=== PATIENT | male | born 1955 | race Caucasian/White ===

== ENCOUNTER 2016-09-21 09:57 | Inpatient (IN) ==
[2016-09-21] MEDS ORDERED: Ondansetron 4 MG/2 ML VIAL IVP ONE (10:14)
[2016-09-21] MEDS ORDERED: *HR* HYDROmorphone (PF) 1 MG/ML SYRINGE IVP ONE (10:14)
[2016-09-21] MEDS ORDERED: 0.9 % Sodium Chloride 1,000 ML IVC ONE ×3 (10:14→11:50)
[2016-09-21] MEDS ORDERED: Piperacillin/Tazobactam 3.375 GM in D5% in Water (Mini-Bag+) 100 ML IVPB ONE (10:18)
[2016-09-21 10:42] LABS: Basophils % 0.3 %; Eosinophils % 0.1 %; Hematocrit 49.7 % (37.5-50.1); Hemoglobin 16.8 g/dL (12.9-16.9); Immature Granulocytes % 0.9 % (0-4); Lymphocytes % 7.3 %; Mean Corpuscular HGB Conc 33.8 g/dL (31.6-35.5); Mean Corpuscular Volume 85.7 fL (83.0-100.0); Mean Platelet Volume 9.4 fL (9.4-12.4); Platelet Count 319 K/mcL (140-400); Red Cell Distribution Width 13.8 % (11.5-14.5); Segmented Neutrophils % 84.4 %
[2016-09-21 10:47] LABS: INR 1.3; Prothrombin Time 13.8 Seconds (9.4-12.1)
[2016-09-21 10:50] LABS: Activated Partial Thrombo Time 30.6 Seconds (26.0-36.0)
[2016-09-21 11:00] LABS: Albumin 3.9 g/dL (3.5-5.0); Albumin/Globulin Ratio 0.7 (1.1-2.2); Bilirubin,Direct 0.7 mg/dL (0.0-0.5); Bilirubin,Indirect 0.5 mg/dL (0.0-1.2); Bilirubin,Total 1.2 mg/dL (0.2-1.2); Calcium 11.6 mg/dL (8.6-10.8); Globulin 5.6 g/dL (2.4-3.5); Potassium 3.8 mEq/L (3.5-4.5); Total Protein 9.5 g/dL (6.0-8.3)
--- NOTE | 2016-09-21 11:32 | Emergency Department Note ---
Disposition Clinical Impression: Acute appendicitis Qualifiers: Acute appendicitis type: with localized peritonitis Qualified Code(s): K35.3 - Acute appendicitis with localized peritonitis Abdominal pain Qualifiers: Abdominal location: right lower quadrant Qualified Code(s): R10.31 - Right lower quadrant pain Sepsis Qualifiers: Sepsis type: sepsis due to unspecified organism Qualified Code(s): A41.9 - Sepsis, unspecified organism Hypotension Qualifiers: Hypotension type: unspecified hypotension type Qualified Code(s): I95.9 - Hypotension, unspecified Disposition: Admitted As Inpatient Condition: Fair Referrals: Natividad Roberto BILLET DRILLER [Primary Care Provider] - Forms: Work/School Release, ED Satisfaction Letter Time of Disposition: 13:18 Abdominal Pain HPI - General Chief Complaint: ED Abdominal Pain Stated Complaint: "Hernia" Time Seen by Provider: 09/21/16 10:05 Source: patient, family Mode of arrival: ambulatory Limitations: no limitations Nursing Notes Reviewed: Yes Vital Signs Reviewed: Yes - History of Present Illness HPI Narrative: Patient presented emergency room complaining of abdominal pain. Symptoms started 3-4 days ago. He has what he thinks is a hernia. He felt like he has had significant pain or changes in the symptoms in his abdomen since then. Pain is isolated in the right lower quadrant. He has not been able to eat or drink and has not had a bowel movement in 4 days. He also describes some decreased urinary output. No other changes or surgical intervention performed on his abdomen. He does have a history of bladder cancer that was treated multiple years ago. Denies fevers chills chest pain shortness breath headache or vision change. Has intermittent nausea no specific vomiting and no diarrhea. Pt Subjective Complaint: abdominal pain Onset (ago): day(s) Consistency: constant Location: diffuse Pain Severity: severe Pain Scale: 9 Quality: stabbing Radiation: RLQ Migration to: no migration Improves with: nothing Worsens with: movement Associated symptoms: Reports: nausea, vomiting, chills, constipation. Denies: diarrhea, fever Treatments prior to arrival: none - Related Data Home Medications Medication Instructions Recorded Confirmed Acetaminophen with Codeine 1 tab PO Q6H PRN 09/21/16 09/21/16 [Acetaminophen-Cod #3 Tablet] Gabapentin [Neurontin] 300 mg PO TID 09/21/16 09/21/16 LORazepam [Ativan] 1 mg PO BID 09/21/16 09/21/16 Lisinopril-HCTZ 20-12.5 [Prinzide 1 tab PO DAILY 09/21/16 09/21/16 20-12.5] Naproxen Sodium [Aleve] 220 mg PO Q12H PRN 09/21/16 09/21/16 Venlafaxine HCl [Venlafaxine HCl] 100 mg PO BID 09/21/16 09/21/16 Allergies Allergy/AdvReac Type Severity Reaction Status Date / Time morphine Allergy See Verified 09/21/16 10:04 Comments All systems ED: reviewed and negative except as stated. Constitutional: Reports: chills. Denies: fever, weakness Cardiovascular: Reports: orthopnea. Denies: chest pain, palpitations, dyspnea on exertion Respiratory: Denies: dyspnea, wheezes, hemoptysis Gastrointestinal: Reports: abdominal pain, nausea, vomiting, constipation. Denies: diarrhea Genitourinary: Denies: dysuria, frequency, hematuria Musculoskeletal: Reports: back pain. Denies: neck pain Abdominal Pain PMH - Past Medical History Medical history: Reports: hypertension, seizures Male Surgical History: Reports: other - Social History Smoking status: Current every day smoker Alcohol use: Reports: none Drug use: Reports: none Physical Exam - General Limitations: no limitations General appearance: alert, in no apparent distress - Chest Chest inspection: Present: normal inspection, symmetric chest wall rise - Respiratory Respiratory exam: Present: normal lung sounds bilaterally - Cardiovascular Cardiovascular exam: Present: regular rate, normal rhythm, normal heart sounds - Abdominal Exam Abdominal exam: Present: soft, tenderness, distention (Distention and mild guarding no specific peritoneal leg symptoms no rigidity), normal bowel sounds ( Diminished bowel sounds). Absent: Cabezas's sign, Rovsing's sign, tenderness at McBurney's Point - Extremities Exam Extremities exam: Present: normal inspection, full ROM, normal capillary refill - Back Exam Back exam: Present: normal inspection - Neurological Exam Neurological exam: Present: alert, oriented X3, CN II-XII intact, normal gait - Skin Skin exam: Present: warm, dry, intact, normal color Course Course Narrative: Patient seen and examined at the time of arrival. See history of present illness. 60-year-old male presents to emergency room 4 days with abdominal pain and inability to urinate and inability to have a bowel movement. Remote history of bladder cancer. No recent or previous history of abdominal surgeries. Only surgeries ever had is of the bladder. Patient denies fevers has had intermittent chills nausea vomiting no diarrhea. Denied chest pain or shortness of breath. Patient presented with vital signs are tachycardic intermittently to Blood pressure was stable in triage but is low on initial evaluation at the bedside. Patient is concerning based on physical exam for intra-abdominal pathology including hernia, incarcerated bowel, gut, renal calculi, obstruction at this time. Lungs are clear heart is regular but tachycardia abdomen is distended mildly tense fluid wave no peritoneal signs symptoms or presentation at this time. IV antibiotics will be given fluid boluses to be provided for resuscitation 2 large-bore IVs given blood cultures CBC chemistry BNP and further treatment course to be evaluated. Patient is concerning for surgical abdomen and will require further resuscitation. We will continue to monitor closely in the emergency room his treatment course is completed. Pain medication nausea medication to be given. Family is at the bedside and comfortable the course of care - Reevaluation(s) Reevaluation #1: Patient has 3 L of fluid were ordered at this time. He has no history of congestive heart failure or fluid overload. Patient is persistently hypodensity 82/60. Abdominal pain was controlled with pain medication nausea medication. CT imaging is still pending at this point. Patient does have an elevated white blood cell, and a significantly elevated creatinine at 6.43. Concern is noted projected pathology or intra-abdominal pathology at this time. We will continue monitoring his treatment course is completed. Patient will need evaluation by a neurosurgeon or further medical management this time. No history of acute aortic dissection or a triple a in the family. Patient has no other medical issues prior to this. Abdomen is otherwise the most concerning pathology at this point. Disposition pending treatment course. Bedside ultrasound completed by myself showing what appears to be no fluid in the abdomen. Difficult test based on patient's abdomen distention at this time. Distended loops of bowel noted on exam with no free fluid at this point Time: 11:57 Reevaluation #2: central line placed and in good location. Will be used for the norepinephrine drip and fluid resuscitation. 2 L of lactated Ringer's to be given at this time. I discussed the patient with the runway model on-call. They are happy to accept the patient to the ICU for further evaluation and management. Discussed intervention as well as consultations with the on-call surgeon and inside sales territory manager. Patient is stable resting in the bed at this time. Fluid and medication to be provided as tolerated. Disposition will be admission to the ICU Time: 13:17 Reevaluation #3: There is transported to the ICU without any complications Time: 14:00 - Consultations Consultation #1: Patient discussed with the surgeon Dr. Vyas. He and I reviewed the patient' s presentation symptoms medical intervention and CAT scan findings. He independently reviewed the CAT scan and said the patient will most likely need medical management as well as a nasogastric tube placed at this time. He recommended nephrology consultation admission the hospitalist and he will be down to evaluate the patient here in the emergency room at the bedside. We discussed the patient's abdomen being distended and mildly tense as well as his symptoms presentation and history. Patient is otherwise resting in the bed at this time symptoms are better under control heart rate is coming down blood pressure is still a concern. 3 L of fluids running at this time Time: 12:13 Consultation #2: discussed the pt with Dr. Mak on-call inside sales territory manager. The patient's presentation symptoms medical history and previous evaluation. His recommendation was to continue aggressive fluid hydration based on his medical history as well as summation maintain blood pressure. Patient will be clinically treated for shock at this point providing him with pressure medication. IV central line to be placed at this time I myself at the bedside. Verbal and then consent forms were signed by the patient he understands risks and benefits of this. Please see procedure note. Time: 12:25 Vital Signs Temperature 97.5 F L 09/21/16 09:58 Pulse Rate 125 09/21/16 09:58 Respiratory Rate 18 09/21/16 09:58 Blood Pressure 100/70 09/21/16 09:58 O2 Sat by Pulse Oximetry 93 09/21/16 09:58 Temperature 97.5 F L 09/21/16 09:58 Pulse Rate 112 09/21/16 10:58 Respiratory Rate 17 09/21/16 10:58 Blood Pressure 88/63 09/21/16 10:58 O2 Sat by Pulse Oximetry 91 09/21/16 10:58 Oxygen Delivery Oxygen Delivery Nasal Cannula Procedures - Central Line Placement Right IJ Central Line Inserted*: Yes Central Line Insertion: emergent Consent Obtained: written consent Procedural Pause: verify patient name and date of , timeout performed per policy, godfrey and assess the site, assemble equipment and verify supplies, perform hand hygiene Patient Placed on Monitor/Pulse Ox: Yes During the Procedure: clinician is wearing sterile gloves, cap, mask,& gown during insertion, sterile field and sterile technique are maintained, patient's face is covered with drape or mask and wearing a cap, everyone in room is wearing a mask Central Line Prep: Chlorhexidine scrub Prep the Procedure Site: apply chloraprep for 30 seconds (upper body), 1-2 min ( femoral sites) Local Anesthetic: lidocaine 1% Amount of anesthesia used (mL): 10 Ultrasound Used for Placement: Yes Central Line Lumen Inserted: triple Post Procedure: sutured in place, good blood return, all ports aspirated, flushed, capped, sterile dressing applied, guide wire removed and visualized, dressing is dated Post Procedure X-Ray: tip of catheter in good position, no pneumothorax seen Patient Tolerated Procedure: well Complications: none Abdominal Pain - MDM Narrative Medical decision making narrative: Abdominal pain, brad, appendicitis, phlegmon, sepsis - Medical Records Medical records reviewed: Yes I reviewed the patient's medical records. - Lab Data Lab results reviewed: Yes I reviewed the patient's lab results. Result diagrams: 09/21/16 10:29 09/21/16 10:29 Lab Results 09/21/16 09/21/16 09/21/16 Range/Units 10:29 10:29 10:29 WBC 14.2 H (4.3-11.1) K/mcL RBC 5.80 H (4.19-5.50) M/mcL Hgb 16.8 (12.9-16.9) g/dL Hct 49.7 (37.5-50.1) % MCV 85.7 (83.0-100.0) fL MCH 29.0 (28.0-33.3) pg MCHC 33.8 (31.6-35.5) g/dL RDW 13.8 (11.5-14.5) % Plt Count 319 (140-400) K/mcL MPV 9.4 (9.4-12.4) fL Immature Gran % 0.9 (0-4) % Seg Neutrophils % 84.4 % Lymphocytes % 7.3 % Monocytes % 7.0 % Eosinophils % 0.1 % Basophils % 0.3 % Neutrophils # 12.0 H (1.6-8.9) K/mcL Lymphocytes # 1.0 (0.6-4.6) K/mcL Monocytes # 1.0 (0.0-1.3) K/mcL Eosinophils # 0.0 (0.0-0.6) K/mcL Basophils # 0.0 (0.0-0.2) K/mcL PT 13.8 H (9.4-12.1) Seconds INR 1.3 APTT 30.6 (26.0-36.0) Seconds Sodium 138 (136-145) mEq/L Potassium 3.8 (3.5-4.5) mEq/L Chloride 94 L (98-109) mEq/L Carbon Dioxide 25 (19-29) mEq/L BUN 74 H (8-26) mg/dL Creatinine 6.43 H (0.72-1.25) mg/dL Est GFR ( Amer) 11 L (> 60) Est GFR (Non-Af Amer) 9 L (> 60) BUN/Creatinine Ratio 12 (6-26) Glucose 155 H (70-99) mg/dL Calculated Osmolality 311 H (280-300) Lactic Acid (0.5-2.2) mmol/L Calcium 11.6 H (8.6-10.8) mg/dL Total Bilirubin 1.2 (0.2-1.2) mg/dL Direct Bilirubin 0.7 H (0.0-0.5) mg/dL Indirect Bilirubin 0.5 (0.0-1.2) mg/dL AST 19 (5-34) Units/L ALT 25 (0-55) Units/L Alkaline Phosphatase 60 (38-126) Units/L Serum Total Protein 9.5 H (6.0-8.3) g/dL Albumin 3.9 (3.5-5.0) g/dL Globulin 5.6 H (2.4-3.5) g/dL Albumin/Globulin Ratio 0.7 L (1.1-2.2) Lipase 34 (8-78) Units/L 09/21/16 Range/Units 10:29 WBC (4.3-11.1) K/mcL RBC (4.19-5.50) M/mcL Hgb (12.9-16.9) g/dL Hct (37.5-50.1) % MCV (83.0-100.0) fL MCH (28.0-33.3) pg MCHC (31.6-35.5) g/dL RDW (11.5-14.5) % Plt Count (140-400) K/mcL MPV (9.4-12.4) fL Immature Gran % (0-4) % Seg Neutrophils % % Lymphocytes % % Monocytes % % Eosinophils % % Basophils % % Neutrophils # (1.6-8.9) K/mcL Lymphocytes # (0.6-4.6) K/mcL Monocytes # (0.0-1.3) K/mcL Eosinophils # (0.0-0.6) K/mcL Basophils # (0.0-0.2) K/mcL PT (9.4-12.1) Seconds INR APTT (26.0-36.0) Seconds Sodium (136-145) mEq/L Potassium (3.5-4.5) mEq/L Chloride (98-109) mEq/L Carbon Dioxide (19-29) mEq/L BUN (8-26) mg/dL Creatinine (0.72-1.25) mg/dL Est GFR ( Amer) (> 60) Est GFR (Non-Af Amer) (> 60) BUN/Creatinine Ratio (6-26) Glucose (70-99) mg/dL Calculated Osmolality (280-300) Lactic Acid 1.8 (0.5-2.2) mmol/L Calcium (8.6-10.8) mg/dL Total Bilirubin (0.2-1.2) mg/dL Direct Bilirubin (0.0-0.5) mg/dL Indirect Bilirubin (0.0-1.2) mg/dL AST (5-34) Units/L ALT (0-55) Units/L Alkaline Phosphatase (38-126) Units/L Serum Total Protein (6.0-8.3) g/dL Albumin (3.5-5.0) g/dL Globulin (2.4-3.5) g/dL Albumin/Globulin Ratio (1.1-2.2) Lipase (8-78) Units/L - Radiology Data Radiology results reviewed: Yes I reviewed the patient's radiology results. CT abdomen confirms possible abscess and appendicitis in the right lower quadrant of the abdomen. - EKG Data EKG attestation: Yes I reviewed and interpreted this EKG. EKG shows normal: sinus rhythm, axis, intervals, QRS complexes, ST-T waves Rate: tachycardia Rhythm: NSR Hartwick/QRS: normal When compared to previous EKG there are: no significant changes Interpretation: no acute changes, unchanged when compared to prior tracing (date ) (Compared to EKG on 03/23/10) Critical Care Time Critical Care Time: Yes Total Critical Care Time: 60 Attestation: Definitive procedures, medical intervention, consultations
[2016-09-21 12:24] LABS: Bilirubin,Urine Small (Negative); Blood,Urine Negative (Negative); Clarity,Urine Cloudy (Clear); Color,Urine Dark Yellow (Yellow); Glucose,Urine (UA) 100 mg/dL (Normal); Ketones,Urine Trace mg/dL (Negative); Leukocyte Esterase,Urine Trace (Negative); Nitrite,Urine Negative (Negative); Protein,Urine Trace mg/dL (Neg-Trace); Specific Gravity,Urine 1.024 (1.010-1.025); Urobilinogen,Urine Normal (Normal)
[2016-09-21 12:27] LABS: Bacteria,Urine None Seen per hpf (None-Few); Squamous Epithelial Cell,Urine Many per lpf (None-Few)
[2016-09-21] MEDS ORDERED: Norepinephrine 4 MG in D5% in Water 250 ML IVC SCH (12:30)
--- NOTE | 2016-09-21 12:37 | General Surgery Consult Note ---
Date of Encounter: 09/21/16 Time of Encounter: 12:34 Assessment and Plan (1) Acute appendicitis with peritonitis Current Visit: Yes Status: Acute I personally reviewed the CT scan images and report and is likely the patient has acute appendicitis/phlegmon present. There is surrounding inflammation around the cecum and some stranding which is concerning for an phlegmon process. I explained to the patient and family at the most important things are IV fluid hydration, NG tube placement for decompression and the antibiotics. Will closely follow him because he still may require surgical intervention which if necessary will require right colectomy. I explained that the bowel decompression may go a long way in helping to decrease his distended abdomen and improving his pain symptoms. Nephrology has also been consulted with regards to signs of acute kidney injury. We will follow closely with you. History of Present Illness Consult date: 09/21/16 Reason for consult: abdominal pain Requesting physician: Asael Garcia History of present illness: The patient is a 60-year-old male with a past medical history significant for bladder cancer, morbid obesity, hypertension, and bronchitis who states over the past 4 days he has had the onset of right lower quadrant abdominal pain that has been increasing in severity and constant in nature. The pain has actually made it difficult for him to ambulate. He admits to nausea and vomiting and states that he vomited prior to presenting to the emergency room. He admits to constipation and normally has a bowel movement once a day but has not had a bowel movement for 4 days. Because of his worsening abdominal pain symptoms he presented to the emergency room for further evaluation. Of note; I last saw him in my office 2 years ago for possible colonoscopy. He has never had a colonoscopy and has a grandparent with a history of colon cancer. At the time he canceled the colonoscopy (he did not wish to have it done at that time). Past Med Surg Social Fam HX - Past Medical History Medical history: hypertension, seizures - Past Surgical History Surgical History: other (Cystoscopy, Righ shoulder fracture repair, excision of bladder tumor/cancer) - Social History Smoking Status: Current every day smoker Alcohol use: none Drug use: none Medications and Allergies Acetaminophen with Codeine [Acetaminophen-Cod #3 Tablet] 1 tab PO Q6H PRN [History] Gabapentin [Neurontin] 300 mg PO TID 09/21/16 [History] LORazepam [Ativan] 1 mg PO BID 09/21/16 [History] Lisinopril-HCTZ 20-12.5 [Prinzide 20-12.5] 1 tab PO DAILY 09/21/16 [History] Naproxen Sodium [Aleve] 220 mg PO Q12H PRN 09/21/16 [History] Venlafaxine HCl [Venlafaxine HCl] 100 mg PO BID 09/21/16 [History] Allergies morphine Allergy (Verified 09/21/16 10:04) See Comments Review of Systems All systems PM: reviewed and no additional remarkable complaints except as stated All systems PM: A 10-system review of systems was performed and is negative for pertinent findings except as documented above in the HPI. General Surgery Exam Initial Vital Signs Temp Pulse Resp BP Pulse Ox 97.5 F L 125 18 100/70 93 09/21/16 09:58 09/21/16 09:58 09/21/16 09:58 09/21/16 09:58 09/21/16 09:58 - General physical appearance moderate distress, moderate pain - Eyes PERRL, normal ocular movement - Neck no masses, trachea midline, no lymphadectomy - Respiratory normal expansion, normal respiratory effort, other (decreased breath sounds at the bases) - Cardiovascular Cardiovascular exam: Present: RRR, no murmurs/rubs/gallops - Abdomen Abdomen general surgery: Present: tender (Distended, no bowel sounds. Pain to palpation right sided greater than left. No masses appreciated.) - Neurologic Present: CN 2-12 grossly intact, normal coordination, normal sensation - Musculoskeletal Present: other (No clubbing, cyanosis, or edema.) - Psychiatric Psychiatric general surgery: Present: A&Ox3 Exam Initial Vital Signs Temp Pulse Resp BP Pulse Ox 97.5 F L 125 18 100/70 93 09/21/16 09:58 09/21/16 09:58 09/21/16 09:58 09/21/16 09:58 09/21/16 09:58 Results - Labs 09/21/16 10:29 09/21/16 10:29 Abnormal lab results WBC 14.2 K/mcL (4.3-11.1) H 09/21/16 10:29 RBC 5.80 M/mcL (4.19-5.50) H 09/21/16 10:29 Neutrophils # 12.0 K/mcL (1.6-8.9) H 09/21/16 10:29 PT 13.8 Seconds (9.4-12.1) H 09/21/16 10:29 Chloride 94 mEq/L (98-109) L 09/21/16 10:29 BUN 74 mg/dL (8-26) H 09/21/16 10:29 Creatinine 6.43 mg/dL (0.72-1.25) H 09/21/16 10:29 Est GFR ( Amer) 11 (> 60) L 09/21/16 10:29 Est GFR (Non-Af Amer) 9 (> 60) L 09/21/16 10:29 Glucose 155 mg/dL (70-99) H 09/21/16 10:29 Calculated Osmolality 311 (280-300) H 09/21/16 10:29 Calcium 11.6 mg/dL (8.6-10.8) H 09/21/16 10:29 Direct Bilirubin 0.7 mg/dL (0.0-0.5) H 09/21/16 10:29 Serum Total Protein 9.5 g/dL (6.0-8.3) H 09/21/16 10:29 Globulin 5.6 g/dL (2.4-3.5) H 09/21/16 10:29 Albumin/Globulin Ratio 0.7 (1.1-2.2) L 09/21/16 10:29 Diabetes panel 09/21/16 Range/Units 10:29 Sodium 138 (136-145) mEq/L Potassium 3.8 (3.5-4.5) mEq/L Chloride 94 L (98-109) mEq/L Carbon Dioxide 25 (19-29) mEq/L BUN 74 H (8-26) mg/dL Creatinine 6.43 H (0.72-1.25) mg/dL Glucose 155 H (70-99) mg/dL Calcium 11.6 H (8.6-10.8) mg/dL AST 19 (5-34) Units/L ALT 25 (0-55) Units/L Alkaline Phosphatase 60 (38-126) Units/L Albumin 3.9 (3.5-5.0) g/dL Calcium panel 09/21/16 Range/Units 10:29 Calcium 11.6 H (8.6-10.8) mg/dL Albumin 3.9 (3.5-5.0) g/dL Pituitary panel 09/21/16 Range/Units 10:29 Sodium 138 (136-145) mEq/L Potassium 3.8 (3.5-4.5) mEq/L Chloride 94 L (98-109) mEq/L Carbon Dioxide 25 (19-29) mEq/L BUN 74 H (8-26) mg/dL Creatinine 6.43 H (0.72-1.25) mg/dL Glucose 155 H (70-99) mg/dL Calcium 11.6 H (8.6-10.8) mg/dL Adrenal panel 09/21/16 Range/Units 10:29 Sodium 138 (136-145) mEq/L Potassium 3.8 (3.5-4.5) mEq/L Chloride 94 L (98-109) mEq/L Carbon Dioxide 25 (19-29) mEq/L BUN 74 H (8-26) mg/dL Creatinine 6.43 H (0.72-1.25) mg/dL Glucose 155 H (70-99) mg/dL Calcium 11.6 H (8.6-10.8) mg/dL Total Bilirubin 1.2 (0.2-1.2) mg/dL AST 19 (5-34) Units/L ALT 25 (0-55) Units/L Alkaline Phosphatase 60 (38-126) Units/L Albumin 3.9 (3.5-5.0) g/dL All other labs normal. - Imaging CT scan - abdomen: report reviewed, image reviewed (CT showing fatty inflammatory changes around the cecum and possible enlarged appendix concerning for appendicitis versus phlegmon. No free air or free fluid. Dilated small bowel. Colon with stool present.) Consult Discharge Plan - Plan Referrals: Natividad Roberto, SUNITA [Primary Care Provider] -
[2016-09-21 12:38] LABS: RBC,Urine 0-3 per hpf (0-3)
[2016-09-21 12:39] LABS: Renal Epithelial Cells,Urine Few per hpf (None-Few); Transitional Epi Cells,Urine Few per hpf (None-Few)
[2016-09-21 12:40] LABS: Amorphous Sediment,Urine Moderate (Few)
[2016-09-21 12:54] LABS: INR 1.4
--- NOTE | 2016-09-21 13:11 | Event Note ---
Date of Encounter: 09/21/16 Time of Encounter: 13:05 Nephrology Update Consulted for PATIENCE in the setting of acute appy and rigid abdomen. In the ER, the pt was in the middle of receiving a CVC. I briefly spoke with the pt, and subsequently spoke the DIRECTOR TRANSLATION who will tentatively be his nurse in the ICU. Initial impressions: - PATIENCE with ddx of sepsis, poor hemodynamics, pre-renal vs abdominal compartment syndrome. - Hypercalcemia: suggestive of severe dehydration. His Hgb was also somewhat high suggestive of volume depletion. Recommend ongoing volume expansion with IVF and agree with placement of the CVC. I've placed orders for following up on his SCr, K and Ca; and, I spoke with the DIRECTOR TRANSLATION asking her to keep me updated. Check a bladder pressure to assess for abdominal compartment syndrome. He appears to not have urgent HD indications, but will have to follow his labs closely since he's potentially near to needing dialysis. Appendicitis as per surgery Full consult and recommendations to follow. Thank you.
[2016-09-21] MEDS ORDERED: Ringers Solution, Lactated 1,000 ML IVC ONE (13:22)
[2016-09-21] MEDS ORDERED: 0.9 % Sodium Chloride 1,000 ML ONE (14:02)
[2016-09-21] MEDS ORDERED: Ondansetron 4 MG/2 ML VIAL IVP PRN (14:33)
[2016-09-21] MEDS ORDERED: Calcium Gluconate 1,000 MG in D5% in Water 100 ML IVPB PRN (14:35)
[2016-09-21] MEDS ORDERED: Potassium Phosphate 44 MEQ in 0.9 % Sodium Chloride 250 ML IVPB PRN (14:35)
[2016-09-21] MEDS ORDERED: Magnesium Sulfate 2 GM in D5% in Water 100 ML IVPB PRN (14:35)
[2016-09-21] MEDS ORDERED: Potassium Chloride 40 MEQ/200 ML BAG IVPB PRN (14:35)
[2016-09-21] MEDS ORDERED: *HR* HYDROmorphone (PF) 1 MG/ML SYRINGE IVP PRN (14:38)
--- NOTE | 2016-09-21 14:44 | Pulmonology History & Physical ---
<Joseph Ravi W - Last Filed: 09/21/16 15:18> Date of Encounter: 09/21/16 History of Present Illness HPI: Mr. Chapman is a 60 year old male Medications and Allergies Acetaminophen with Codeine [Acetaminophen-Cod #3 Tablet] 1 tab PO Q6H PRN [History] Gabapentin [Neurontin] 300 mg PO TID 09/21/16 [History] LORazepam [Ativan] 1 mg PO BID 09/21/16 [History] Lisinopril-HCTZ 20-12.5 [Prinzide 20-12.5] 1 tab PO DAILY 09/21/16 [History] Naproxen Sodium [Aleve] 220 mg PO Q12H PRN 09/21/16 [History] Venlafaxine HCl [Venlafaxine HCl] 100 mg PO BID 09/21/16 [History] Allergies morphine Allergy (Verified 09/21/16 10:04) See Comments All Systems: A 10-system review of systems was performed and is negative for pertinent findings except as documented above in the HPI. Physical Examination Vital Signs: Vital Signs, Last 4 Hours Pulse Resp BP Pulse Ox 09/21/16 13:53 16 100/62 09/21/16 13:36 85 16 96/63 92 Results - Laboratory Findings CBC and BMP: 09/21/16 10:29 09/21/16 10:29 PT/INR, D-dimer PT 15.0 Seconds (9.4-12.1) H 09/21/16 12:34 Abnormal lab findings: Abnormal lab results WBC 14.2 K/mcL (4.3-11.1) H 09/21/16 10:29 RBC 5.80 M/mcL (4.19-5.50) H 09/21/16 10:29 Neutrophils # 12.0 K/mcL (1.6-8.9) H 09/21/16 10:29 PT 15.0 Seconds (9.4-12.1) H 09/21/16 12:34 Chloride 94 mEq/L (98-109) L 09/21/16 10:29 BUN 74 mg/dL (8-26) H 09/21/16 10:29 Creatinine 6.43 mg/dL (0.72-1.25) H 09/21/16 10:29 Est GFR ( Amer) 11 (> 60) L 09/21/16 10:29 Est GFR (Non-Af Amer) 9 (> 60) L 09/21/16 10:29 Glucose 155 mg/dL (70-99) H 09/21/16 10:29 POC Glucose 133 (58-89) H 09/21/16 14:06 Calculated Osmolality 311 (280-300) H 09/21/16 10:29 Calcium 11.6 mg/dL (8.6-10.8) H 09/21/16 10:29 Direct Bilirubin 0.7 mg/dL (0.0-0.5) H 09/21/16 10:29 Serum Total Protein 9.5 g/dL (6.0-8.3) H 09/21/16 10:29 Globulin 5.6 g/dL (2.4-3.5) H 09/21/16 10:29 Albumin/Globulin Ratio 0.7 (1.1-2.2) L 09/21/16 10:29 Urine Clarity Cloudy (Clear) A 09/21/16 12:11 Urine Glucose (UA) 100 mg/dL (Normal) H 09/21/16 12:11 Urine Ketones Trace mg/dL (Negative) H 09/21/16 12:11 Urine Bilirubin Small (Negative) H 09/21/16 12:11 Ur Leukocyte Esterase Trace (Negative) H 09/21/16 12:11 Urine Microscopic WBC 5-15 per hpf (0-3) H 09/21/16 12:11 Ur Squamous Epith Cells Many per lpf (None-Few) H 09/21/16 12:11 Amorphous Sediment Moderate (Few) H 09/21/16 12:11 Ur Culture Indicated? YES (NO) A 09/21/16 12:11 - Attending Attestation I examined this patient and my medical decision-making was reviewed with the ANIMAL SHELTER WORKER/PA/Advanced Practice Nurse/Resident Physician. I agree with the documented findings, disposition and treatment plan as described except to the extent set forth below. Patient seen and examined at bedside Labs, radiology, chart personally reviewed. Neuropsych: No focal neurological deficits. Cont narcotic analgesia as neede. Pulm: Patient is a long-time smoker possible underlying COPD oxygen saturation on room air is drop down to less than 89% which improved quickly with 2 L this is likely secondary to splinting and atelectasis from abdominal distention/ pain. Wean FiO2 to keep SpO2 around 92-94% Cards: ECG without STEMI; concern for hypovolemic versus distributive shock secondary to acute appendicitis has received generous fluid resuscitation in the emergency department map borderline 60 was briefly on vasopressor but that has been weaned off lactate is normal continue to monitor urine output and will place on maintenance fluid FEN-GI: Nothing by mouth for now NG tube placement for possible small bowel obstruction acute appendicitis plus/minus perforation although without evidence on CT scan general surgery consulted opting for medical management are present if worsening abdominal examination may need emergent surgery. We will continue to monitor with serial abdominal examinations Renal: Acute kidney injury secondary to hypovolemia with concomitant use of nonsteroidal anti-inflammatory medications for pain. Some concern for abdominal compartment syndrome given degree of distention and bladder pressure will be transduced; nephrology has evaluated the patient he is received fluid resuscitation we will renally dose all medications and attempt to avoid nephrotoxin as able ID: Severe sepsis patient has been adequately volume resuscitated greater than 30 mL per KG; cordoba cultures have been obtained antimicrobial coverage for GI darby including anaerobic has been administered (per Pip/Tazo). Heme/Onc: DVT prophylaxis will be given type and screen for possible surgery H/ H and platelets are stable Endo: Glucose will be monitored Integ/MSK: Skin care per routine ICU protocol CODE: Full code <Pamela Avila - Last Filed: 09/21/16 16:07> Date of Encounter: 09/21/16 Time of Encounter: 14:31 Assessment and Plan (1) Acute appendicitis with peritonitis Current visit: Yes Status: Acute Male patient presenting to ICU after diagnosis of acute appendicitis. Dr. Vyas is the surgeon on board. Dr. Tijerina with nephrology on board. He also has PATIENCE. Creatinine is greater than 6. He has darkened urine but decent urine output. His white count is 14. A central line was placed in the emergency department he was placed on Levofed. This is being discontinued as he is maintaining a map greater than 60. Plan: Zosyn Fluid rehydration. Maintenance fluids at 75 mL an hour DVT prophylaxis heparin 5000 units every 8 Maintain map between 55 and 60. Nothing by mouth Levophed as needed if pressure drops again. Serial abdominal exams Continue to monitor. (2) Sepsis Current visit: Yes Status: Acute Central line placed. Patient has been given 4 L of normal saline and 1 L of LR. The Levophed was started and discontinued. Respirations maintaining a map in the 60s. Mentating appropriately. Plan: Repeat lactate. Continue antibiotics. Qualifiers: Sepsis type: sepsis due to unspecified organism Qualified Code(s): A41.9 - Sepsis, unspecified organism (3) PATIENCE (acute kidney injury) Current visit: Yes Status: Acute Nephro onboard. Plan: Patient received several fluid boluses. Maintenance fluid at 75 an hour. Continue to monitor (4) Hypotension Current visit: Yes Status: Acute Plan as above (5) DVT prophylaxis Current visit: Yes Status: Acute Plan as above History of Present Illness HPI: Mr. Chapman is a 60 year old male who presents emergency arm in today complaining of lower right quadrant pain. He was found to have an acute appendicitis and possible abscess. He is reporting a 3 to four-day history of nausea with one episode of vomiting. He denies hematemesis. He is also reporting no bowel movements in anywhere from 3-5 days. He states that prior to this he did not have any episodes of hematochezia or melena. He does report subjective fevers at home that are consistent with chilling. Patient was found to have acute appendicitis as well as fluid around his appendix. On CT it is not appears that there is a perforation but is as peers if there may be an abscess. Surgery is being consult it. We are medically managing patient for now. He was initially hypotensive in emergency department a central line was placed and patient was placed on the Levophed. This is been discontinued for now and patient is maintaining a map in the 60s. His received 4 L of normal saline as well as 1 L of LR. We will continue maintenance fluids. He also has PATIENCE. Creatinine is greater than 6. Past Med Surg Social Fam HX - Past Medical History Attestation: Yes The following information was validated with the patient. Medical history: hypertension, seizures - Past Surgical History Surgical History: other (Cystoscopy, Righ shoulder fracture repair, excision of bladder tumor/cancer) - Social History Smoking Status: Current every day smoker Alcohol use: none Drug use: none All Systems: A 10-system review of systems was performed and is negative for pertinent findings except as documented above in the HPI. - Constitutional Constitutional: fever(s) (Subjective fevers, chilling for the past 4-5 days.) - Cardiovascular Cardiovascular: no chest pain - Respiratory Respiratory: no cough, no dyspnea - Gastrointestinal Gastrointestinal: abdominal pain (Patient localizes to right lower quadrant), nausea (For the last 3-4 days.), vomiting (One episode that he describes as a slimy mucus.), other (No stool in 3-4 days.), no diarrhea, no hematemesis, no hematochezia, no melena - Genitourinary Genitourinary: no difficulty urinating, no dysuria, no flank pain, no hematuria - Musculoskeletal Musculoskeletal: no arthralgias - Integumentary Integumentary: no erythema, no rash Physical Examination Vital Signs: Vital Signs, Last 4 Hours Pulse Resp BP Pulse Ox 09/21/16 13:53 16 100/62 09/21/16 13:36 85 16 96/63 92 General appearance: no acute distress Eyes: nonicteric ENT: oropharynx dry (Mucous membranes dry.) Neck: supple, no lymphadenopathy, no JVD Effort: normal Inspection: normal Auscultation: bilateral: clear Cardiovascular: regular rate and rhythm Gastrointestinal: normoactive bowel sounds, tender (To palpation diffusely.), other (Abdomen is distended and taut. Not scaphoid. No fluid wave present. No organomegaly that I can appreciate however patient is very tender and guards. ) Results - Laboratory Findings CBC and BMP: 09/21/16 10:29 09/21/16 10:29 PT/INR, D-dimer PT 15.0 Seconds (9.4-12.1) H 09/21/16 12:34 Abnormal lab findings: Abnormal lab results WBC 14.2 K/mcL (4.3-11.1) H 09/21/16 10:29 RBC 5.80 M/mcL (4.19-5.50) H 09/21/16 10:29 Neutrophils # 12.0 K/mcL (1.6-8.9) H 09/21/16 10:29 PT 15.0 Seconds (9.4-12.1) H 09/21/16 12:34 Chloride 94 mEq/L (98-109) L 09/21/16 10:29 BUN 74 mg/dL (8-26) H 09/21/16 10:29 Creatinine 6.43 mg/dL (0.72-1.25) H 09/21/16 10:29 Est GFR ( Amer) 11 (> 60) L 09/21/16 10:29 Est GFR (Non-Af Amer) 9 (> 60) L 09/21/16 10:29 Glucose 155 mg/dL (70-99) H 09/21/16 10:29 POC Glucose 133 (58-89) H 09/21/16 14:06 Calculated Osmolality 311 (280-300) H 09/21/16 10:29 Calcium 11.6 mg/dL (8.6-10.8) H 09/21/16 10:29 Direct Bilirubin 0.7 mg/dL (0.0-0.5) H 09/21/16 10:29 Serum Total Protein 9.5 g/dL (6.0-8.3) H 09/21/16 10:29 Globulin 5.6 g/dL (2.4-3.5) H 09/21/16 10:29 Albumin/Globulin Ratio 0.7 (1.1-2.2) L 09/21/16 10:29 Urine Clarity Cloudy (Clear) A 09/21/16 12:11 Urine Glucose (UA) 100 mg/dL (Normal) H 09/21/16 12:11 Urine Ketones Trace mg/dL (Negative) H 09/21/16 12:11 Urine Bilirubin Small (Negative) H 09/21/16 12:11 Ur Leukocyte Esterase Trace (Negative) H 09/21/16 12:11 Urine Microscopic WBC 5-15 per hpf (0-3) H 09/21/16 12:11 Ur Squamous Epith Cells Many per lpf (None-Few) H 09/21/16 12:11 Amorphous Sediment Moderate (Few) H 09/21/16 12:11 Ur Culture Indicated? YES (NO) A 09/21/16 12:11 - Diagnostic Findings Chest x-ray: report reviewed Additional studies: Abdomen/Pelvis CT 09/21/16 11:06 IMPRESSION: Findings suggest acute appendicitis with extensive right lower quadrant and pericecal inflammatory changes. Small area of fluid measuring 23 x 15 x 23 mm adjacent to the appendix may represent a developing abscess. Note definite discrete abscess at this time. Ileus versus partial mid small bowel obstruction likely secondary to the right lower quadrant inflammatory changes from acute appendicitis. Transition from dilated to normal caliber small bowel in the proximal ileum. Severe diffuse hepatic steatosis. D/ / 09/21/2016 12:03:28 Aamir Brown MD / kassie Interpreting Provider: Aamir Brown MD Chest X-Ray 09/21/16 13:04 IMPRESSION: Left basilar airspace disease, probably atelectasis. D/ / Natividad Pacheco Cha, MD / Natividad Pacheco Cha, MD Interpreting Provider: Natividad Pacheco Cha, MD
[2016-09-21] MEDS: *HR* HYDROmorphone (PF) 1 MG/ML SYRINGE IVP SCH ×2 (14:58→20:28)
[2016-09-21] MEDS: 0.9 % Sodium Chloride 1,000 ML IVC SCH (14:59)
[2016-09-21] MEDS: *HR* Heparin 5,000 UNIT/ML VIAL SQ SCH ×2 (16:26→22:50)
[2016-09-21 16:51] LABS: Ionized Calcium 1.12 mmol/L (1.15-1.35)
[2016-09-21 17:02] LABS: Phosphorous 6.1 mg/dL (2.3-4.7)
[2016-09-21 17:03] LABS: Potassium 3.8 mEq/L (3.5-4.5)
[2016-09-21] MEDS: Piperacillin/Tazobactam 3.375 GM in D5% in Water (Mini-Bag+) 100 ML IVPB SCH (18:06)
[2016-09-21] MEDS: *HR* LORazepam 2 MG/ML VIAL IVP SCH (20:28)
[2016-09-22] MEDS: *HR* HYDROmorphone (PF) 1 MG/ML SYRINGE IVP SCH ×6 (00:22→21:24)
[2016-09-22] MEDS: 0.9 % Sodium Chloride 1,000 ML IVC SCH (03:56)
[2016-09-22 04:20] LABS: Basophils % 0.3 %; Eosinophils # 0.1 K/mcL (0.0-0.6); Eosinophils % 1.8 %; Hematocrit 41.8 % (37.5-50.1); Immature Granulocytes % 0.6 % (0-4); Lymphocytes # 0.9 K/mcL (0.6-4.6); Mean Corpuscular HGB Conc 33.5 g/dL (31.6-35.5); Mean Corpuscular Hemoglobin 29.6 pg (28.0-33.3); Mean Corpuscular Volume 88.4 fL (83.0-100.0); Mean Platelet Volume 9.5 fL (9.4-12.4); Monocytes # 0.7 K/mcL (0.0-1.3); Monocytes % 8.7 %; Neutrophils # 6.1 K/mcL (1.6-8.9); Platelet Count 239 K/mcL (140-400); Red Blood Count 4.73 M/mcL (4.19-5.50); Red Cell Distribution Width 13.9 % (11.5-14.5); Segmented Neutrophils % 77.6 %
[2016-09-22 04:26] LABS: Ionized Calcium 1.17 mmol/L (1.15-1.35)
[2016-09-22 04:32] LABS: Magnesium 2.3 mg/dL (1.6-2.6); Uric Acid 10.4 mg/dL (3.5-7.2)
[2016-09-22] MEDS: *HR* Heparin 5,000 UNIT/ML VIAL SQ SCH ×3 (06:07→21:23)
[2016-09-22] MEDS: Piperacillin/Tazobactam 3.375 GM in D5% in Water (Mini-Bag+) 100 ML IVPB SCH ×2 (06:07→16:00)
[2016-09-22 06:47] LABS: Calcium 9.5 mg/dL (8.6-10.8); Potassium 3.7 mEq/L (3.5-4.5)
--- NOTE | 2016-09-22 07:24 | Pulmonology Progress Note ---
<Pamela Avila - Last Filed: 09/22/16 08:26> Date of Encounter: 09/22/16 Time of Encounter: 07:23 Assessment and Plan (1) Acute appendicitis with peritonitis Current Visit: Yes Status: Acute Male patient presenting to ICU after diagnosis of acute appendicitis. Dr. Vyas is the surgeon on board. Dr. Tijerina with nephrology on board. He also has PATIENCE. This has resolved significantly with fluid administration. Creatinine is greater than 6. He has darkened urine but decent urine output. His white count is 14. A central line was placed in the emergency department he was placed on Levofed. This is being discontinued as he is maintaining a map greater than 60. Plan: Move to the floor Zosyn Fluid rehydration. Maintenance fluids at 75 mL an hour DVT prophylaxis heparin 5000 units every 8 Nothing by mouth NG to suction Serial abdominal exams Continue to monitor. (2) Sepsis Current Visit: Yes Status: Acute Likely abdominal source from the appendicitis. Patient not requiring pressors most of the day yesterday as well as last night. Plan: Move to the floor Continue antibiotics. Surgery on board Qualifiers: Sepsis type: sepsis due to unspecified organism Qualified Code(s): A41.9 - Sepsis, unspecified organism (3) PATIENCE (acute kidney injury) Current Visit: Yes Status: Acute Nephro onboard. Creatinine significantly improved overnight with rehydration. Went from greater than 6 to around 2. Plan: Patient received several fluid boluses. Maintenance fluid at 75 an hour. Continue to monitor (4) DVT prophylaxis Current Visit: Yes Status: Acute Plan as above Subjective Interval history: Patient had no events overnight. He has been stable. His blood pressures been stable and not requiring any vasopressors. He is easily arousable when I walk into his room. He has no complaints initially however on palpation of his abdomen he does complain of a diffuse pain. He states mostly in the right and left lower quadrants. His abdomen is still distended and taut. Do not appreciate any organomegaly however patient guards so this is a limit to the patient's abdominal exam. Dr. Vyas is on board for surgery. He is recommending we continue antibiotic treatment. I feel this is reasonable. Patient is stable enough to move to the floor today. 07:29 Dr. Burnham accepted patient in stable condition. Objective PUL Vital signs: Last Vital Signs Temp 97.8 F 09/22/16 04:00 Pulse 86 09/22/16 06:00 Resp 19 09/22/16 06:00 BP 125/85 09/22/16 06:00 Pulse Ox 95 09/22/16 06:00 General appearance: no acute distress Eyes: nonicteric ENT: oropharynx moist Neck: supple Effort: normal Auscultation: bilateral: clear Cardiovascular: regular rate and rhythm Gastrointestinal: normoactive bowel sounds, tender (Diffusely patient localizes to the lower quadrants.), other (Distended and taut. Not scaphoid.) Integumentary: normal Extremities: no cyanosis, no edema, no clubbing, pink and warm, pulses normal, no ischemia or petechiae Musculoskeletal: no deformities Gait: normal posture normal mental status, non-focal exam, pupils equal and round mood appropriate, affect normal Results - Laboratory Findings CBC and BMP: 09/22/16 03:55 09/22/16 03:55 PT/INR, D-dimer PT 15.0 Seconds (9.4-12.1) H 09/21/16 12:34 Abnormal lab findings: Abnormal lab results PT 15.0 Seconds (9.4-12.1) H 09/21/16 12:34 BUN 56 mg/dL (8-26) H 09/22/16 03:55 Creatinine 2.35 mg/dL (0.72-1.25) H 09/22/16 03:55 Est GFR ( Amer) 35 (> 60) L 09/22/16 03:55 Est GFR (Non-Af Amer) 29 (> 60) L 09/22/16 03:55 Glucose 107 mg/dL (70-99) H 09/22/16 03:55 POC Glucose 133 (58-89) H 09/21/16 14:06 Calculated Osmolality 312 (280-300) H 09/22/16 03:55 Uric Acid 10.4 mg/dL (3.5-7.2) H 09/22/16 03:55 Direct Bilirubin 0.7 mg/dL (0.0-0.5) H 09/21/16 10:29 Serum Total Protein 9.5 g/dL (6.0-8.3) H 09/21/16 10:29 Globulin 5.6 g/dL (2.4-3.5) H 09/21/16 10:29 Albumin/Globulin Ratio 0.7 (1.1-2.2) L 09/21/16 10:29 Urine Clarity Cloudy (Clear) A 09/21/16 12:11 Urine Glucose (UA) 100 mg/dL (Normal) H 09/21/16 12:11 Urine Ketones Trace mg/dL (Negative) H 09/21/16 12:11 Urine Bilirubin Small (Negative) H 09/21/16 12:11 Ur Leukocyte Esterase Trace (Negative) H 09/21/16 12:11 Urine Microscopic WBC 5-15 per hpf (0-3) H 09/21/16 12:11 Ur Squamous Epith Cells Many per lpf (None-Few) H 09/21/16 12:11 Amorphous Sediment Moderate (Few) H 09/21/16 12:11 Ur Culture Indicated? YES (NO) A 09/21/16 12:11 - Clinical Findings Intake & Output: Intake & Output 09/21/16 09/21/16 09/22/16 15:59 23:59 07:59 Intake Total 20 / 3020 100 / 100 1000 / 1000 Output Total 3900 / 3900 1250 / 1250 Balance 20 / 3020 -3800 / -3800 -250 / -250 Weight 111 kg 106.1 kg Consult Discharge Plan - Plan Referrals: Natividad Roberto, ACQUISITION PROFESSIONAL [Primary Care Provider] - <Joseph Ravi - Last Filed: 09/22/16 12:20> Date of Encounter: 09/22/16 Objective PUL Vital signs: Last Vital Signs Temp 97.7 F 09/22/16 07:59 Pulse 100 09/22/16 08:00 Resp 19 09/22/16 06:00 BP 125/85 09/22/16 06:00 Pulse Ox 95 09/22/16 06:00 Results - Laboratory Findings CBC and BMP: 09/22/16 03:55 09/22/16 03:55 PT/INR, D-dimer PT 15.0 Seconds (9.4-12.1) H 09/21/16 12:34 Abnormal lab findings: Abnormal lab results PT 15.0 Seconds (9.4-12.1) H 09/21/16 12:34 BUN 56 mg/dL (8-26) H 09/22/16 03:55 Creatinine 2.35 mg/dL (0.72-1.25) H 09/22/16 03:55 Est GFR ( Amer) 35 (> 60) L 09/22/16 03:55 Est GFR (Non-Af Amer) 29 (> 60) L 09/22/16 03:55 Glucose 107 mg/dL (70-99) H 09/22/16 03:55 POC Glucose 133 (58-89) H 09/21/16 14:06 Calculated Osmolality 312 (280-300) H 09/22/16 03:55 Uric Acid 10.4 mg/dL (3.5-7.2) H 09/22/16 03:55 Direct Bilirubin 0.7 mg/dL (0.0-0.5) H 09/21/16 10:29 Serum Total Protein 9.5 g/dL (6.0-8.3) H 09/21/16 10:29 Globulin 5.6 g/dL (2.4-3.5) H 09/21/16 10:29 Albumin/Globulin Ratio 0.7 (1.1-2.2) L 09/21/16 10:29 Urine Clarity Cloudy (Clear) A 09/21/16 12:11 Urine Glucose (UA) 100 mg/dL (Normal) H 09/21/16 12:11 Urine Ketones Trace mg/dL (Negative) H 09/21/16 12:11 Urine Bilirubin Small (Negative) H 09/21/16 12:11 Ur Leukocyte Esterase Trace (Negative) H 09/21/16 12:11 Urine Microscopic WBC 5-15 per hpf (0-3) H 09/21/16 12:11 Ur Squamous Epith Cells Many per lpf (None-Few) H 09/21/16 12:11 Amorphous Sediment Moderate (Few) H 09/21/16 12:11 Ur Culture Indicated? YES (NO) A 09/21/16 12:11 - Clinical Findings Intake & Output: Intake & Output 09/21/16 09/22/16 09/22/16 23:59 07:59 15:59 Intake Total 100 / 100 1000 / 1000 Output Total 3900 / 3900 2475 / 2475 Balance -3800 / -3800 -1475 / -1475 Weight 106.1 kg - Attending Attestation I examined this patient and my medical decision-making was reviewed with the PLASTIC EXTRUDING MACHINE OPERATOR/PA/Advanced Practice Nurse/Resident Physician. I agree with the documented findings, disposition and treatment plan as described except to the extent set forth below. Patient seen and examined at bedside Labs, radiology, chart personally reviewed. All lines examined without evidence of infection. Neuropsych: Awake and alert no acute issues continue pain control with Dilaudid Pulm: Mild hypoxemia treated with 2 L nasal cannula likely secondary to alveolar hypoventilation and atelectasis in the context of small bowel obstruction/appendicitis recommend out of bed to chair when able and incentive spirometry tobacco cessation encouraged Cards: Hypotension has resolved can begin to titrate patient's home blood pressure medications as tolerated by blood pressure FEN-GI: Nothing by mouth for now partial small bowel obstruction status post NG placement still having significant output continued IV maintenance fluid increased to 1 25 mL an hour with lactated Ringer's acute appendicitis surgery following plan for medical management at present over the next 24-48 hours. Appreciate Gen Surgery recommendations Renal: Acute kidney injury secondary to prerenal azotemia complicated by NSAID use and possible TACOS inhibitor this is improving after volume resuscitation renal dose all medications and avoid nephrotoxins nephrology has been consulted appreciate the recommendations ID: Acute appendicitis with or without perforation but no evidence of peritonitis continue piperacillin/tazobactam Heme/Onc: DVT prophylaxis given Endo: Glucose monitor Integ/MSK: Skin care per routine CODE: Full Stable for transfer to [facility] telemetry for ongoing care
--- NOTE | 2016-09-22 08:17 | General Surgery Progress Note ---
Date of Encounter: 09/22/16 Time of Encounter: 08:12 - Assessment and Plan (1) Acute appendicitis with peritonitis Current Visit: Yes Status: Acute Overall I think that his abdomen is less distended with similar amounts of tenderness. I think continued IV antibiotics will be the most important therapy to help with his pain with respect to the acute appendicitis/phlegmon. We will continue to follow closely. Agree with continued NG tube decompression. Output is noted to be blood-tinged and will follow closely. Subjective Patient reports: other (The patient is lying down, complains of pain in the right lower abdomen; unchanged. No flatus.) Objective Vital Signs - Last 8 Hours Temp Pulse Resp BP Pulse Ox 09/22/16 07:59 97.7 F 09/22/16 06:00 86 19 125/85 95 09/22/16 05:00 95 12 102/77 93 09/22/16 04:00 97.8 F 95 19 112/77 97 09/22/16 03:00 83 17 119/77 95 09/22/16 02:00 84 18 108/69 96 09/22/16 01:00 93 19 103/70 97 Intake and Output 09/21/16 09/22/16 09/22/16 23:59 07:59 15:59 Intake Total 100 / 100 1000 / 1000 Output Total 3900 / 3900 2475 / 2475 Balance -3800 / -3800 -1475 / -1475 Intake: IV Fluids 100 / 100 1000 / 1000 0.9 % Sodium Chloride 1, 1000 / 1000 000 ML @ 75 mls/hr IVC . [id number] GUERRERO Rx#: [id number] Zosyn 3.375 GM In 100 / 100 Dextrose 5% (Minibag+) 100 ML 100 ML @ 25 mls/hr IVPB Q12HR GUERRERO Rx#: [id number] Output: Catheter 1550 / 1550 1125 / 1125 Gastric Drainage 2350 / 2350 1350 / 1350 Other: Weight 106.1 kg Patient Weight 09/22/16 23:59 Weight 106.1 kg - General physical appearance moderate distress - Abdomen Abdomen: Present: soft, tender (right lower abdominal pain to palpation. Less distension is noted compared to yesterday's exam.) - Labs 09/22/16 03:55 09/22/16 03:55 Diabetes panel 09/21/16 09/22/16 Range/Units 16:30 03:55 Sodium 139 143 (136-145) mEq/L Potassium 3.8 3.7 (3.5-4.5) mEq/L Chloride 103 104 (98-109) mEq/L Carbon Dioxide 23 27 (19-29) mEq/L BUN 67 H 56 H (8-26) mg/dL Creatinine 4.46 H 2.35 H (0.72-1.25) mg/dL Glucose 134 H 107 H (70-99) mg/dL Calcium 9.0 D 9.5 (8.6-10.8) mg/dL Calcium panel 09/21/16 09/21/16 09/22/16 Range/Units 16:30 16:30 03:55 Calcium 9.0 D (8.6-10.8) mg/dL Phosphorus 6.1 H 4.0 (2.3-4.7) mg/dL 09/22/16 Range/Units 03:55 Calcium 9.5 (8.6-10.8) mg/dL Phosphorus (2.3-4.7) mg/dL Pituitary panel 09/21/16 09/22/16 Range/Units 16:30 03:55 Sodium 139 143 (136-145) mEq/L Potassium 3.8 3.7 (3.5-4.5) mEq/L Chloride 103 104 (98-109) mEq/L Carbon Dioxide 23 27 (19-29) mEq/L BUN 67 H 56 H (8-26) mg/dL Creatinine 4.46 H 2.35 H (0.72-1.25) mg/dL Glucose 134 H 107 H (70-99) mg/dL Calcium 9.0 D 9.5 (8.6-10.8) mg/dL Adrenal panel 09/21/16 09/22/16 Range/Units 16:30 03:55 Sodium 139 143 (136-145) mEq/L Potassium 3.8 3.7 (3.5-4.5) mEq/L Chloride 103 104 (98-109) mEq/L Carbon Dioxide 23 27 (19-29) mEq/L BUN 67 H 56 H (8-26) mg/dL Creatinine 4.46 H 2.35 H (0.72-1.25) mg/dL Glucose 134 H 107 H (70-99) mg/dL Calcium 9.0 D 9.5 (8.6-10.8) mg/dL Consult Discharge Plan - Plan Referrals: Natividad Roberto, RAILROAD SWITCHMAN [Primary Care Provider] -
[2016-09-22] MEDS: *HR* LORazepam 2 MG/ML VIAL IVP SCH ×2 (08:29→21:24)
[2016-09-22] MEDS ORDERED: 0.9 % Sodium Chloride 1,000 ML IVC SCH (09:06)
[2016-09-22] MEDS ORDERED: Ondansetron 4 MG/2 ML VIAL IVP PRN (09:06)
--- NOTE | 2016-09-22 09:27 | Nephrology Consult Note ---
Date of Encounter: 09/22/16 Time of Encounter: 09:27 Assessment and Plan (1) PATIENCE (acute kidney injury) Current Visit: Yes Status: Acute Multifactorial: sepsis, volume depletion, hypovolemic shock, chronic use of NSAIDs No previous history of kidney disease. Uric acid 10.4 Initially hypercalcemic which has improved with fluid administration. Patient received over 4 L of normal saline with improvement of kidney function. Serum creatinine trending down to 2.35. Urinalysis showed leukocyte esterase with WBC, urine culture negative. Fluid balance net negative with UOP 3900 yesterday and gastric drainage of over 2300 mL. Plan: Retroperitoneal ultrasound Continue IV fluids: Patient may experience tingling and swelling in the upper extremities which is expected. BMP tomorrow morning. Recommend discontinuing any NSAIDs. Recommend holding lisinopril hydrochlorothiazide. Continue renal protective strategy (2) Acute appendicitis Current Visit: Yes Status: Acute Management as per surgery. Qualifiers: Acute appendicitis type: with localized peritonitis Qualified Code(s): K35.3 - Acute appendicitis with localized peritonitis (3) Sepsis Current Visit: Yes Status: Acute Secondary to appendicitis. On Zosyn. Qualifiers: Sepsis type: sepsis due to unspecified organism Qualified Code(s): A41.9 - Sepsis, unspecified organism (4) Hypotension Current Visit: Yes Status: Acute Resolved. Secondary to volume loss from vomiting and decreased oral intake due to nausea from appendicitis. Off pressors. Continue IV fluids. Qualifiers: Hypotension type: unspecified hypotension type Qualified Code(s): I95.9 - Hypotension, unspecified History of Present Illness - Reason for Consult Consult date: 09/21/16 Acute Kidney Injury - Chief Complaint Abdominal pain - History of Present Illness 60-year-old male with history of bladder cancer, hypertension, presented with chief complaint of abdominal pain. Patient was found to have acute appendicitis /sepsis along with a with a serum creatinine of 6.43 She does not have a history of kidney disease. Consultation was placed for nephrology for acute renal failure. Patient stated that he has been having multiple bouts of vomiting the last 4 days. He has not had a bowel movement for the last 4 days either. His abdominal pain is in the right lower quadrant. He also states he has had decreased urinary output. Patient was examined by Dr. Mak and was given volume resuscitation which has greatly improved his serum creatinine. Today his creatinine is 2.35. Patient is being treated with Zosyn, NG tube for his acute appendicitis. Patient has a history of using NSAIDs including naproxen, ibuprofen, etodolac in the past. He is also on lisinopril hydrochlorothiazide for hypertension. Past Med Surg Social Fam HX - Past Medical History Medical history: hypertension, seizures Psychiatric history: anxiety - Past Surgical History Surgical History: other - Social History Smoking Status: Current every day smoker Packs per day: 1 Smokeless Tobacco Status: No Alcohol use: none Drug use: none - Family History Brother Hx Family Genitourinary Disorders: Yes (End-stage renal disease secondary to diabetes) Medications and Allergies Acetaminophen with Codeine [Acetaminophen-Cod #3 Tablet] 1 tab PO Q6H PRN [History] Gabapentin [Neurontin] 300 mg PO TID 09/21/16 [History] LORazepam [Ativan] 1 mg PO BID 09/21/16 [History] Lisinopril-HCTZ 20-12.5 [Prinzide 20-12.5] 1 tab PO DAILY 09/21/16 [History] Naproxen Sodium [Aleve] 220 mg PO Q12H PRN 09/21/16 [History] Venlafaxine HCl [Venlafaxine HCl] 100 mg PO BID 09/21/16 [History] Allergies morphine Allergy (Verified 09/21/16 10:04) See Comments Review of Systems All Systems review (narrative): Constitutional: Reports subjective fevers denies chills HEENT: Reports headache, blurry vision. Denies neck pain, sore throat, rhinorrhea Heart: Denies chest pain palpitations Lungs: Reports shortness of breath but denies cough Abdomen: Reports abdominal pain, nausea, vomiting, constipation. Extremities: Denies swelling, pain Neuro: Denies numbness, and tingling Exam - Vital Signs Vital signs: Initial Vital Signs Temp Pulse Resp BP Pulse Ox 97.5 F L 125 18 100/70 93 09/21/16 09:58 09/21/16 09:58 09/21/16 09:58 09/21/16 09:58 09/21/16 09:58 Vital Signs - Last 8 Hours Temp Pulse Resp BP Pulse Ox 09/22/16 08:00 100 09/22/16 07:59 97.7 F 09/22/16 06:00 86 19 125/85 95 09/22/16 05:00 95 12 102/77 93 09/22/16 04:00 97.8 F 95 19 112/77 97 09/22/16 03:00 83 17 119/77 95 09/22/16 02:00 84 18 108/69 96 Intake and Output 09/21/16 09/22/16 09/22/16 23:59 07:59 15:59 Intake Total 100 / 100 1000 / 1000 Output Total 3900 / 3900 2475 / 2475 Balance -3800 / -3800 -1475 / -1475 Intake: IV Fluids 100 / 100 1000 / 1000 0.9 % Sodium Chloride 1, 1000 / 1000 000 ML @ 75 mls/hr IVC . [id number] GUERRERO Rx#: [id number] Zosyn 3.375 GM In 100 / 100 Dextrose 5% (Minibag+) 100 ML 100 ML @ 25 mls/hr IVPB Q12HR GUERRERO Rx#: [id number] Output: Catheter 1550 / 1550 1125 / 1125 Gastric Drainage 2350 / 2350 1350 / 1350 Other: Weight 106.1 kg Patient Weight 09/22/16 23:59 Weight 106.1 kg - General Appearance General appearance: obese, moderate distress EENT: mucous membranes moist Additional Comments: NG tube. Neck: no JVD, supple Respiratory: clear Cardiology: no edema, regular rate, regular rhythm, normal S1, normal S2 Additional Comments: Distended, soft, not tender to palpation however tender to percussion on the right lower quadrant. Positive bowel sounds. Integumentary: no rash, warm and dry Neurologic: no focal deficit, alert and oriented x3 Musculoskeletal: no erythema, no cyanosis, no clubbing Psychiatric: mood/affect appropriate Results - Lab Results 09/22/16 03:55 09/22/16 03:55 Most recent lab results Calcium 9.5 mg/dL (8.6-10.8) 09/22/16 03:55 Phosphorus 4.0 mg/dL (2.3-4.7) 09/22/16 03:55 Magnesium 2.3 mg/dL (1.6-2.6) 09/22/16 03:55 - Image Kidney/bladder ultrasound: pending Consult Discharge Plan - Plan Referrals: Natividad Roberto, PATIENT SAFETY MANAGER [Primary Care Provider] -
[2016-09-22] MEDS ORDERED: Ringers Solution, Lactated 1,000 ML IVC SCH (10:30)
[2016-09-22] MEDS: Ringers Solution, Lactated 1,000 ML IVC SCH ×2 (10:30→18:02)
[2016-09-22] MEDS ORDERED: Ringers Solution, Lactated 1,000 ML ONE (10:31)
[2016-09-22 10:58] LABS: Hepatitis B Surface Antibody 0.69 mIU/mL; Hepatitis C Virus Antibody Nonreactive (Nonreactive)
--- NOTE | 2016-09-22 13:31 | Electrocardiograph Report ---
[place] [id number] Test Date: 2016-09-21 Pat Name: Jonnie Chapman Department: 105 Room: 3A14 Gender: M Senior Systems Software Engineer: : 1955 Requested By: Asael Garcia Order Number: [id number] Reading MD: Rell Willson MD Measurements Intervals [place] Rate: 121 P: 68 [place]: 141 QRS: 10 QRSD: 92 T: 43 QT: 331 QTc: 403 Interpretive Statements SINUS TACHYCARDIA BASELINE ARTIFACT Electronically Signed On 09-22-2016 13:29:24 EDT by Rell Willson MD
[2016-09-22] MEDS: *HR* HYDROmorphone (PF) 1 MG/ML SYRINGE IVP PRN ×2 (13:58→18:01)
[2016-09-22] MEDS ORDERED: Piperacillin/Tazobactam 3.375 GM in D5% in Water (Mini-Bag+) 100 ML IVPB SCH (16:00)
--- NOTE | 2016-09-22 19:04 | Internal Med Progress Note ---
Date of Encounter: 09/22/16 Time of Encounter: 13:15 - Assessment and plan (1) Acute appendicitis with peritonitis Current Visit: Yes Status: Acute Assessment and plan: Continue IV Zosyn, IV fluids NG tube suction Nothing by mouth Gen. surgery following (2) Sepsis Current Visit: Yes Status: Acute Assessment and plan: Likely due to appendicitis Continue IV Zosyn, IV fluids Qualifiers: Sepsis type: sepsis due to unspecified organism Qualified Code(s): A41.9 - Sepsis, unspecified organism (3) PATIENCE (acute kidney injury) Current Visit: Yes Status: Acute Assessment and plan: Likely secondary to sepsis and hypotension Continue IV fluids, repeat labs Nephrology following (4) DVT prophylaxis Current Visit: Yes Status: Acute Assessment and plan: Heparin subcutaneous - Time Spent With Patient less than 15 minutes - Subjective Interval history: Patient is a 60-year-old male with past history of hypertension and seizure disorder. He was admitted initially for sepsis secondary to acute appendicitis with peritonitis. He was initially ICU requiring pressors. He is now been transferred out of ICU after being weaned off pressors. General surgery is following patient. Advised to continue NG tube decompression and IV antibiotics. On examination patient is awake and alert. Not in distress. Complains of abdominal pain. Rates it about 5 out of 10. Seems to be generalized. Also complains of bloating. - Constitutional Vitals: Temp Pulse Resp BP Pulse Ox 98.8 F 98 17 125/81 95 09/22/16 15:19 09/22/16 15:19 09/22/16 15:19 09/22/16 15:19 09/22/16 15:19 General appearance: Present: A&O X 3, no acute distress, answers questions appropriately - Head Head exam: Present: atraumatic - Neck Neck exam general surgery: Present: supple - Respiratory Respiratory exam: Present: CTAB. Absent: rhonchi, wheezes - Cardiovascular Cardiovascular exam: Present: RRR, +S1, +S2 - GI/Abdominal GI/Abdominal exam: Present: distended, soft, tenderness (Generalized). Absent: firm, guarding, rigid - Extremities Exam Extremities exam: Present: radial pulses palpable and symetrical. Absent: cyanotic, pedal edema - Neurological Exam Neurological exam: Present: alert, oriented X3, no focal deficits Internal Medicine: Result - Labs CBC & Chem 7: 09/22/16 03:55 09/22/16 03:55 Labs: Short CBC 09/22/16 Range/Units 03:55 WBC 7.9 (4.3-11.1) K/mcL Hgb 14.0 D (12.9-16.9) g/dL Hct 41.8 (37.5-50.1) % Plt Count 239 (140-400) K/mcL Neutrophils # 6.1 (1.6-8.9) K/mcL BMP 09/22/16 03:55 Sodium 143 Potassium 3.7 Chloride 104 Carbon Dioxide 27 BUN 56 H Creatinine 2.35 H Glucose 107 H Calcium 9.5 - ABG Interpretation ABG results: PT/INR, D-dimer PT 15.0 Seconds (9.4-12.1) H 09/21/16 12:34 Consult Discharge Plan - Plan Referrals: Natividad Roberto, BRAND SPECIALIST [Primary Care Provider] -
[2016-09-23] MEDS: Piperacillin/Tazobactam 3.375 GM in D5% in Water (Mini-Bag+) 100 ML IVPB SCH ×3 (01:05→16:40)
[2016-09-23] MEDS: *HR* HYDROmorphone (PF) 1 MG/ML SYRINGE IVP SCH ×6 (01:08→20:06)
[2016-09-23] MEDS: Ringers Solution, Lactated 1,000 ML IVC SCH ×3 (02:21→17:36)
[2016-09-23] MEDS: *HR* Heparin 5,000 UNIT/ML VIAL SQ SCH ×3 (05:06→20:05)
[2016-09-23 05:37] LABS: BUN/Creatinine Ratio 34 (6-26); Calcium 9.6 mg/dL (8.6-10.8); Carbon Dioxide 33 mEq/L (19-29); Chloride 102 mEq/L (98-109); Glucose 99 mg/dL (70-99); Osmolality,Calculated 304 (280-300); Potassium 3.4 mEq/L (3.5-4.5); Sodium 143 mEq/L (136-145); eGFR For African Americans > 60 (> 60); eGFR For Non-African Americans > 60 (> 60)
[2016-09-23 05:38] LABS: Blood Urea Nitrogen 36 mg/dL (8-26)
[2016-09-23] MEDS: *HR* LORazepam 2 MG/ML VIAL IVP SCH ×2 (07:52→20:09)
--- NOTE | 2016-09-23 09:09 | Internal Med Progress Note ---
Date of Encounter: 09/23/16 Time of Encounter: 09:07 - Assessment and plan (1) Acute appendicitis with peritonitis Current Visit: Yes Status: Acute Assessment and plan: Septic shock secondary to perforated acute appendicitis/phlegmon formation/ abscess Continue IV Zosyn day 3, IV fluids Not requiring pressors, out of the ICU NG tube suction Nothing by mouth Gen. surgery recommendations appreciated (2) Sepsis Current Visit: Yes Status: Acute Assessment and plan: Septic shock Likely due to appendicitis Continue IV Zosyn, IV fluids Qualifiers: Sepsis type: sepsis due to unspecified organism Qualified Code(s): A41.9 - Sepsis, unspecified organism (3) Hypotension Current Visit: Yes Status: Acute Qualifiers: Hypotension type: unspecified hypotension type Qualified Code(s): I95.9 - Hypotension, unspecified (4) PATIENCE (acute kidney injury) Current Visit: Yes Status: Acute Assessment and plan: Likely secondary to sepsis and hypotension Continue IV fluids, improving Nephrology following (5) Depression Current Visit: Yes Status: Acute Assessment and plan: Resume venlafaxine to avoid withdrawal Qualifiers: Depression Type: major depressive disorder Active/Remission status: remission status unspecified Qualified Code(s): F32.9 - Major depressive disorder, single episode, unspecified - Subjective Interval history: Continues to complain about abdominal pain mainly in the lower quadrants, distention, nausea, no chest pain, mild shortness of breath, no dysuria, says he is passing gas - Constitutional Vitals: Temp Pulse Resp BP Pulse Ox 97.4 F L 84 16 114/72 94 09/23/16 08:15 09/23/16 08:15 09/23/16 08:15 09/23/16 03:51 09/23/16 08:15 General appearance: Present: A&O X 3, no acute distress, answers questions appropriately - Head Head exam: Present: atraumatic, normocephalic - Eye Eye exam: Present: PERRL, conjuntiva pink, sclera anicteric Pupils: Present: PERRL - Neck Neck exam general surgery: Present: supple, trachea midline. Absent: lymphadenopathy - Respiratory Respiratory exam: Present: decreased breath sounds, CTAB. Absent: accessory muscle use, rales, rhonchi, wheezes - Cardiovascular Cardiovascular exam: Present: RRR, +S1, +S2. Absent: diastolic murmur, gallop, rubs, systolic murmur - GI/Abdominal GI/Abdominal exam: Present: distended (Very distended), hypoactive bowel sounds , normal bowel sounds, soft, tenderness (Tender in both lower quadrants), no peritoneal signs - Extremities Exam Extremities exam: Present: warm, radial pulses palpable and symetrical. Absent : calf tenderness, cyanotic, pedal edema - Neurological Exam Neurological exam: Present: CN II-XII intact, oriented X3, no focal deficits. Absent: pronater drift, facial droop, speech deficit - Skin Skin exam: Present: dry, intact Additional comments: Right IJ central line NG tube in place Internal Medicine: Result - Labs CBC & Chem 7: 09/22/16 03:55 09/23/16 05:17 Labs: BMP 09/23/16 05:17 Sodium 143 Potassium 3.4 L Chloride 102 Carbon Dioxide 33 H BUN 36 H D Creatinine 1.07 D Glucose 99 Calcium 9.6 - ABG Interpretation ABG results: PT/INR, D-dimer PT 15.0 Seconds (9.4-12.1) H 09/21/16 12:34 Consult Discharge Plan - Plan Referrals: Natividad Roberto, BANK PRESIDENT [Primary Care Provider] -
--- NOTE | 2016-09-23 09:36 | General Surgery Progress Note ---
Date of Encounter: 09/23/16 Time of Encounter: 09:34 - Assessment and Plan (1) Acute appendicitis with peritonitis Current Visit: Yes Status: Acute Recommend continue with IV antibiotics and NG tube decompression. Due to passing flatus and improved bowel sounds I will refer NG tube to [place] bag drainage. Continue to closely monitor I's and O's. Continue with serial abdominal exams. Patient does have bloody appearing fluid in the NG tube container. Will order for CBC to continue to monitor hemoglobin level. Subjective Patient reports: other (Patient admits to continued lower abdominal pain. He admits to having flatus but no bowel movement. No nausea or vomiting.) Objective Vital Signs - Last 8 Hours Temp Pulse Resp BP Pulse Ox 09/23/16 08:15 97.4 F L 84 16 94 09/23/16 03:51 98.9 F 92 17 114/72 93 Intake and Output 09/22/16 09/23/16 09/23/16 23:59 07:59 15:59 Intake Total 950 / 950 1100 / 1100 Output Total 500 / 500 700 / 700 Balance 450 / 450 400 / 400 Intake: IV Fluids 950 / 950 1100 / 1100 Lactated Ringers 1,000 ML 850 / 850 1000 / 1000 @ 125 mls/hr IVC .Q8H GUERRERO Rx#:[id number] Zosyn 3.375 GM In 100 / 100 100 / 100 Dextrose 5% (Minibag+) 100 ML 100 ML @ 25 mls/hr IVPB Q8H GUERRERO Rx#: [id number] Oral 0 / 0 0 / 0 Output: Urine 0 / 0 Catheter 500 / 500 700 / 700 Gastric Drainage 0 / 0 Other: Meal NPO Blood Glucose* 98 96 - General physical appearance no distress - Cardiovascular Cardiovascular exam: Present: RRR, no murmurs/rubs/gallops - Abdomen Abdomen: Present: bowel sounds present, soft (Obese. Soft; noted mild to moderate distension (patient states that it has decreased but not his baseline). ), tender (Pain to palpation in the RLQ. Noted less pain today compared to prior exam.) - Labs 09/22/16 03:55 09/23/16 05:17 Diabetes panel 09/23/16 Range/Units 05:17 Sodium 143 (136-145) mEq/L Potassium 3.4 L (3.5-4.5) mEq/L Chloride 102 (98-109) mEq/L Carbon Dioxide 33 H (19-29) mEq/L BUN 36 H D (8-26) mg/dL Creatinine 1.07 D (0.72-1.25) mg/dL Glucose 99 (70-99) mg/dL Calcium 9.6 (8.6-10.8) mg/dL Calcium panel 09/23/16 Range/Units 05:17 Calcium 9.6 (8.6-10.8) mg/dL Pituitary panel 09/23/16 Range/Units 05:17 Sodium 143 (136-145) mEq/L Potassium 3.4 L (3.5-4.5) mEq/L Chloride 102 (98-109) mEq/L Carbon Dioxide 33 H (19-29) mEq/L BUN 36 H D (8-26) mg/dL Creatinine 1.07 D (0.72-1.25) mg/dL Glucose 99 (70-99) mg/dL Calcium 9.6 (8.6-10.8) mg/dL Adrenal panel 09/23/16 Range/Units 05:17 Sodium 143 (136-145) mEq/L Potassium 3.4 L (3.5-4.5) mEq/L Chloride 102 (98-109) mEq/L Carbon Dioxide 33 H (19-29) mEq/L BUN 36 H D (8-26) mg/dL Creatinine 1.07 D (0.72-1.25) mg/dL Glucose 99 (70-99) mg/dL Calcium 9.6 (8.6-10.8) mg/dL Consult Discharge Plan - Plan Referrals: Natividad Roberto, SUNITA [Primary Care Provider] -
[2016-09-23 09:59] LABS: Basophils % 0.4 %; Eosinophils # 0.2 K/mcL (0.0-0.6); Eosinophils % 2.8 %; Hematocrit 39.4 % (37.5-50.1); Hemoglobin 12.9 g/dL (12.9-16.9); Immature Granulocytes % 0.9 % (0-4); Mean Corpuscular HGB Conc 32.7 g/dL (31.6-35.5); Mean Corpuscular Hemoglobin 28.8 pg (28.0-33.3); Mean Corpuscular Volume 87.9 fL (83.0-100.0); Mean Platelet Volume 8.9 fL (9.4-12.4); Monocytes # 0.7 K/mcL (0.0-1.3); Neutrophils # 5.5 K/mcL (1.6-8.9); Platelet Count 214 K/mcL (140-400); Red Blood Count 4.48 M/mcL (4.19-5.50); Red Cell Distribution Width 13.4 % (11.5-14.5); Segmented Neutrophils % 73.9 %
--- NOTE | 2016-09-23 13:00 | Nephrology Progress Note ---
Date of Encounter: 09/23/16 Time of Encounter: 09:45 - Assessment and Plan (1) PATIENCE (acute kidney injury) Current Visit: Yes Status: Acute PATIENCE is quickly recovering. UOP is excellent. Continue to follow a renal protective / conservative strategy. Will sign-off, but please feel free to reconsult with any renal questions. Thank you for having consulted the [facility]. Subjective Principal diagnosis: PATIENCE Interval history: The pt was s/e. He did not affirm CP. He reported improving abd swelling and less pain. He was transferred out of the ICU. He did not report any major complaints. Objective - Vital Signs Vital signs: Vital Signs Temp Pulse Resp BP Pulse Ox 09/23/16 10:00 97.4 F L 87 16 118/64 95 09/23/16 08:15 97.4 F L 84 16 94 09/23/16 03:51 98.9 F 92 17 114/72 93 09/22/16 23:57 98.6 F 97 18 108/72 93 09/22/16 20:00 98.6 F 94 18 116/73 93 09/22/16 15:19 98.8 F 98 17 125/81 95 Intake and Output 09/22/16 09/23/16 09/23/16 23:59 07:59 15:59 Intake Total 950 / 950 1100 / 1100 1100 / 1100 Output Total 500 / 500 700 / 700 900 / 900 Balance 450 / 450 400 / 400 200 / 200 Intake: IV Fluids 950 / 950 1100 / 1100 1100 / 1100 Lactated Ringers 1,000 ML 850 / 850 1000 / 1000 1000 / 1000 @ 125 mls/hr IVC .Q8H GUERRERO Rx#:[id number] Zosyn 3.375 GM In 100 / 100 100 / 100 100 / 100 Dextrose 5% (Minibag+) 100 ML 100 ML @ 25 mls/hr IVPB Q8H GUERRERO Rx#: [id number] Oral 0 / 0 0 / 0 0 / 0 Output: Urine 0 / 0 Catheter 500 / 500 700 / 700 500 / 500 Gastric Drainage 0 / 0 400 / 400 Other: Meal NPO npo Percent of Meal Consumed 0% Blood Glucose* 98 96 97 - General Appearance General appearance: Present: well-developed, well-nourished, appears started age , obese EENT: Present: ATNC, PERRL Additional Comments: NGT in place Neck: Present: supple Respiratory: Present: clear Cardiology: Present: no edema, regular rate, normal S1, normal S2 Gastrointestinal: Present: obese, distended Integumentary: Present: warm and dry Neurologic: Present: no focal deficit, no asterixis, alert and oriented x3 Musculoskeletal: Present: no erythema, no cyanosis Psychiatric: Present: mood/affect appropriate, cooperative - Lab 09/23/16 09:45 09/23/16 05:17 Most recent lab results Calcium 9.6 mg/dL (8.6-10.8) 09/23/16 05:17 Phosphorus 4.0 mg/dL (2.3-4.7) 09/22/16 03:55 Magnesium 2.3 mg/dL (1.6-2.6) 09/22/16 03:55 - VTE Documentation of Mechanical Device: Intermittent pneumatic compression device Consult Discharge Plan - Plan Referrals: Natividad Roberto, BLOOD BANK CREDIT CLERK [Primary Care Provider] -
--- NOTE | 2016-09-23 13:19 | Electrocardiograph Report ---
[place] [id number] Test Date: 2016-09-23 Pat Name: Jonnie Chapman Department: 115 Room: 3A14 Gender: M Superintendent Operating: KEO : 1955 Requested By: Jay Vargas Order Number: [id number] Reading MD: Rell Willson MD Measurements Intervals [place] Rate: 79 P: 44 CO: 155 QRS: -4 QRSD: 106 T: 19 QT: 411 QTc: 446 Interpretive Statements SINUS RHYTHM Electronically Signed On 09-23-2016 13:18:15 EDT by Rell Willson MD
[2016-09-24] MEDS: Piperacillin/Tazobactam 3.375 GM in D5% in Water (Mini-Bag+) 100 ML IVPB SCH ×4 (00:24→23:48)
[2016-09-24] MEDS: *HR* HYDROmorphone (PF) 1 MG/ML SYRINGE IVP SCH ×3 (00:25→07:45)
[2016-09-24] MEDS: Ringers Solution, Lactated 1,000 ML IVC SCH ×2 (01:37→08:57)
[2016-09-24] MEDS: *HR* Heparin 5,000 UNIT/ML VIAL SQ SCH ×3 (04:45→23:48)
[2016-09-24 04:49] LABS: Mean Corpuscular HGB Conc 33.3 g/dL (31.6-35.5); Mean Corpuscular Hemoglobin 28.8 pg (28.0-33.3); Mean Corpuscular Volume 86.3 fL (83.0-100.0); Mean Platelet Volume 8.9 fL (9.4-12.4); Platelet Count 199 K/mcL (140-400); Red Blood Count 4.17 M/mcL (4.19-5.50); Red Cell Distribution Width 12.5 % (11.5-14.5)
[2016-09-24 05:21] LABS: BUN/Creatinine Ratio 25 (6-26); Carbon Dioxide 32 mEq/L (19-29); Chloride 103 mEq/L (98-109); Glucose 90 mg/dL (70-99); Osmolality,Calculated 294 (280-300); Potassium 3.4 mEq/L (3.5-4.5); Sodium 141 mEq/L (136-145); eGFR For African Americans > 60 (> 60); eGFR For Non-African Americans > 60 (> 60)
[2016-09-24 05:27] LABS: Blood Urea Nitrogen 20 mg/dL (8-26)
[2016-09-24] MEDS: *HR* LORazepam 2 MG/ML VIAL IVP SCH ×2 (07:45→20:22)
--- NOTE | 2016-09-24 09:45 | Internal Med Progress Note ---
Date of Encounter: 09/24/16 Time of Encounter: 09:44 - Assessment and plan (1) Acute appendicitis with peritonitis Current Visit: Yes Status: Acute Assessment and plan: Septic shock secondary to perforated acute appendicitis/phlegmon formation/ abscess Continue IV Zosyn day 4, IV fluids Not requiring pressors, out of the ICU NG tube Nothing by mouth Gen. surgery recommendations appreciated (2) Sepsis Current Visit: Yes Status: Acute Assessment and plan: Septic shock Likely due to appendicitis Continue IV Zosyn, IV fluids Qualifiers: Sepsis type: sepsis due to unspecified organism Qualified Code(s): A41.9 - Sepsis, unspecified organism (3) Hypotension Current Visit: Yes Status: Acute Qualifiers: Hypotension type: unspecified hypotension type Qualified Code(s): I95.9 - Hypotension, unspecified (4) PATIENCE (acute kidney injury) Current Visit: Yes Status: Acute Assessment and plan: Likely secondary to sepsis and hypotension Continue IV fluids, resolved Nephrology following (5) Depression Current Visit: Yes Status: Acute Assessment and plan: Resumed venlafaxine to avoid withdrawal Qualifiers: Depression Type: major depressive disorder Active/Remission status: remission status unspecified Qualified Code(s): F32.9 - Major depressive disorder, single episode, unspecified - Subjective Interval history: Continues to complain about abdominal pain mainly in the lower quadrants 7 out of 10, distention, nausea, no chest pain, mild shortness of breath, no dysuria, says he is passing gas - Constitutional Vitals: Temp Pulse Resp BP Pulse Ox 98.3 F 82 14 132/88 92 09/24/16 07:48 09/24/16 07:48 09/24/16 07:48 09/24/16 07:48 09/24/16 07:48 General appearance: Present: A&O X 3, no acute distress, answers questions appropriately - Head Head exam: Present: atraumatic, normocephalic Additional comments: NG tube in place - Eye Eye exam: Present: PERRL, conjuntiva pink, sclera anicteric Pupils: Present: PERRL - Neck Neck exam general surgery: Present: supple, trachea midline. Absent: lymphadenopathy - Respiratory Respiratory exam: Present: decreased breath sounds, CTAB. Absent: accessory muscle use, rales, rhonchi, wheezes - Cardiovascular Cardiovascular exam: Present: RRR, +S1, +S2. Absent: diastolic murmur, gallop, rubs, systolic murmur - GI/Abdominal GI/Abdominal exam: Present: distended (Abdomen is very distended and tender to touch in the right lower quadrant), hypoactive bowel sounds, normal bowel sounds , soft, tenderness, no peritoneal signs - Extremities Exam Extremities exam: Present: warm, radial pulses palpable and symetrical. Absent : calf tenderness, cyanotic, pedal edema - Neurological Exam Neurological exam: Present: CN II-XII intact, oriented X3, no focal deficits. Absent: pronater drift, facial droop, speech deficit - Skin Skin exam: Present: dry, intact Internal Medicine: Result - Labs CBC & Chem 7: 09/24/16 04:30 09/24/16 04:30 Labs: Short CBC 09/23/16 09/24/16 Range/Units 09:45 04:30 WBC 7.5 6.9 (4.3-11.1) K/mcL Hgb 12.9 12.0 L (12.9-16.9) g/dL Hct 39.4 36.0 L (37.5-50.1) % Plt Count 214 199 (140-400) K/mcL Neutrophils # 5.5 (1.6-8.9) K/mcL BMP 09/24/16 04:30 Sodium 141 Potassium 3.4 L Chloride 103 Carbon Dioxide 32 H BUN 20 D Creatinine 0.79 Glucose 90 Calcium 9.0 - ABG Interpretation ABG results: PT/INR, D-dimer PT 15.0 Seconds (9.4-12.1) H 09/21/16 12:34 - VTE Documentation of Mechanical Device: Intermittent pneumatic compression device Consult Discharge Plan - Plan Referrals: Natividad Roberto, EDUCATIONAL INTERPRETER [Primary Care Provider] -
[2016-09-24] MEDS ORDERED: Lidocaine Jelly 2% 30 ML JEL..ML. MM ONE (11:34)
[2016-09-24] MEDS ORDERED: Potassium Chloride 20 MEQ, Lidocaine 1% 2 ML in D5% in Water 250 ML IVPB ONE (11:40)
--- NOTE | 2016-09-24 11:46 | General Surgery Progress Note ---
<Kim Banegas Nenita - Last Filed: 09/24/16 11:48> Date of Encounter: 09/24/16 Time of Encounter: 11:30 - Assessment and Plan (1) Acute appendicitis Current Visit: Yes Status: Acute Acute appendicitis with phlegmon Continue with conservative management including: Bowel rest NG tube to LIWS (did not tolerate gravity or removal of NG) IV antibiotics- Zosyn Supportive care/pain control Increase activity as tolerated- ambulate with assistance (may clamp NG for ambulation) Start TPN threrapy via IJ (total fluid rate 100ml/hour with MIV + TPN) Repeat am labs Surgery will continue to follow and assess progress Qualifiers: Acute appendicitis type: with localized peritonitis Qualified Code(s): K35.3 - Acute appendicitis with localized peritonitis (2) Ileus Current Visit: Yes Status: Acute Suspect ileus due to appendicitis with phlegmon Continue bowel rest NG tube to LIWS TPN therapy for IV nutrition- Total fluid rate 100ml/hour with MIV + TPN Await return of bowel function (3) Hypokalemia Current Visit: Yes Status: Acute Repace potassium Repeat am labs (4) DVT prophylaxis Current Visit: Yes Status: Acute Heparin 5,000 units SQ twice daily for DVT prophylaxis Ambulate hallways TID with assistance Subjective Patient reports: still having pain, flatus (minimal), no bowel movement, nausea (complaint of increased bloating), afebrile, other (NG removed by accident this morning) Objective Vital Signs - Last 8 Hours Temp Pulse Resp BP Pulse Ox 09/24/16 09:53 97.4 F L 85 14 151/94 92 09/24/16 07:48 98.3 F 82 14 132/88 92 Intake and Output 09/23/16 09/24/16 09/24/16 23:59 07:59 15:59 Intake Total 1100 / 1100 1100 / 1100 1000 / 1000 Output Total 800 / 800 625 / 625 250 / 250 Balance 300 / 300 475 / 475 750 / 750 Intake: IV Fluids 1100 / 1100 1100 / 1100 1000 / 1000 Lactated Ringers 1,000 ML 1000 / 1000 1000 / 1000 1000 / 1000 @ 125 mls/hr IVC .Q8H [facility] Rx#:[id number] Zosyn 3.375 GM In 100 / 100 100 / 100 Dextrose 5% (Minibag+) 100 ML 100 ML @ 25 mls/hr IVPB Q8H [facility] Rx#: [id number] Oral 0 / 0 0 / 0 Output: Catheter 800 / 800 625 / 625 Gastric Drainage 250 / 250 Other: Meal npo Weight 105.687 kg Blood Glucose* 83 84 Patient Weight 09/24/16 23:59 Weight 105.687 kg - General physical appearance well developed, moderate distress, moderate pain - Eyes normal ocular movement - ENT dry mucosa, atraumatic, normocephalic - Neck Neck exam: trachea midline - Respiratory normal respiratory effort, clear to auscultation, other (Diminished bibasilar bases) - Cardiovascular Cardiovascular exam: Present: RRR - Abdomen Abdomen: Present: bowel sounds present (Minimal and tympanic), soft, tympanic, distended, tender (generalized) - Genitourinary other (garcia catheter to SD) - Neurologic CN 2-12 grossly intact - Psychiatric oriented to time, oriented to person, oriented to place, speech is normal, memory intact - Labs 09/24/16 04:30 09/24/16 04:30 Diabetes panel 09/24/16 Range/Units 04:30 Sodium 141 (136-145) mEq/L Potassium 3.4 L (3.5-4.5) mEq/L Chloride 103 (98-109) mEq/L Carbon Dioxide 32 H (19-29) mEq/L BUN 20 D (8-26) mg/dL Creatinine 0.79 (0.72-1.25) mg/dL Glucose 90 (70-99) mg/dL Calcium 9.0 (8.6-10.8) mg/dL Calcium panel 09/24/16 Range/Units 04:30 Calcium 9.0 (8.6-10.8) mg/dL Pituitary panel 09/24/16 Range/Units 04:30 Sodium 141 (136-145) mEq/L Potassium 3.4 L (3.5-4.5) mEq/L Chloride 103 (98-109) mEq/L Carbon Dioxide 32 H (19-29) mEq/L BUN 20 D (8-26) mg/dL Creatinine 0.79 (0.72-1.25) mg/dL Glucose 90 (70-99) mg/dL Calcium 9.0 (8.6-10.8) mg/dL Adrenal panel 07/07/17 Range/Units 04:30 Sodium 141 (136-145) mEq/L Potassium 3.4 L (3.5-4.5) mEq/L Chloride 103 (98-109) mEq/L Carbon Dioxide 32 H (19-29) mEq/L BUN 20 D (8-26) mg/dL Creatinine 0.79 (0.72-1.25) mg/dL Glucose 90 (70-99) mg/dL Calcium 9.0 (8.6-10.8) mg/dL - VTE Documentation of Mechanical Device: Intermittent pneumatic compression device Consult Discharge Plan - Plan Referrals: Natividad Roberto, CYLINDER PRESS OPERATOR APPRENTICE [Primary Care Provider] - - Attending Attestation I examined this patient and my medical decision-making was reviewed with the TECHNICAL SALES CONSULTANT/PA/Advanced Practice Nurse/Resident Physician. I agree with the documented findings, disposition and treatment plan as described except to the extent set forth below. <Nerissa Anand - Last Filed: 09/25/16 14:06> Date of Encounter: 09/24/16 - Assessment and Plan (1) Abdominal pain Current Visit: Yes Status: Acute prn pain control Qualifiers: Abdominal location: epigastric Qualified Code(s): R10.13 - Epigastric pain (2) Acute appendicitis Current Visit: Yes Status: Acute Qualifiers: Acute appendicitis type: with localized peritonitis Qualified Code(s): K35.3 - Acute appendicitis with localized peritonitis (3) DVT prophylaxis Current Visit: Yes Status: Acute (4) Ileus Current Visit: Yes Status: Acute Subjective Patient reports: no new complaints, still having pain, flatus, no bowel movement , nausea Narrative: complains no improvement in pain since admission 1 week ago (he has been here for 3 days) Objective Vital Signs - Last 8 Hours Temp Pulse Resp BP Pulse Ox 09/25/16 11:42 98.3 F 76 14 128/72 95 09/25/16 07:10 98.3 F 72 14 138/74 95 Intake and Output 09/24/16 09/25/16 09/25/16 23:59 07:59 15:59 Intake Total 100 / 100 350 / 350 0 / 0 Output Total 1900 / 1900 675 / 675 550 / 550 Balance -1800 / -1800 -325 / -325 -550 / -550 Intake: IV Fluids 100 / 100 350 / 350 Intralipid 20% 250 ML @ 250 / 250 21 mls/hr IVPB DAILY@1700 [facility] Rx#:[id number] Zosyn 3.375 GM In 100 / 100 100 / 100 Dextrose 5% (Minibag+) 100 ML 100 ML @ 25 mls/hr IVPB Q8H [facility] Rx#: [id number] Oral 0 / 0 0 / 0 0 / 0 Output: Catheter 800 / 800 675 / 675 550 / 550 Gastric Drainage 1100 / 1100 Other: Meal NPO Weight 105.233 kg Blood Glucose* 101 113 116 Patient Weight 09/25/16 23:59 Weight 105.233 kg - General physical appearance well developed, moderate distress, moderate pain - Eyes normal ocular movement - ENT atraumatic - Neck Neck exam: trachea midline - Respiratory clear to auscultation - Cardiovascular Cardiovascular exam: Present: RRR - Abdomen Abdomen: Present: bowel sounds present, soft, distended, tender - Integumentary no growths - Neurologic CN 2-12 grossly intact - Musculoskeletal normal posture - Psychiatric oriented to time, oriented to person, memory intact - Labs 09/25/16 04:15 09/25/16 04:15 Diabetes panel 09/25/16 Range/Units 04:15 Sodium 138 (136-145) mEq/L Potassium 3.2 L (3.5-4.5) mEq/L Chloride 101 (98-109) mEq/L Carbon Dioxide 30 H (19-29) mEq/L BUN 15 (8-26) mg/dL Creatinine 0.79 (0.72-1.25) mg/dL Glucose 123 H (70-99) mg/dL Calcium 8.9 (8.6-10.8) mg/dL Calcium panel 09/25/16 Range/Units 04:15 Calcium 8.9 (8.6-10.8) mg/dL Phosphorus 3.3 (2.3-4.7) mg/dL Pituitary panel 09/25/16 Range/Units 04:15 Sodium 138 (136-145) mEq/L Potassium 3.2 L (3.5-4.5) mEq/L Chloride 101 (98-109) mEq/L Carbon Dioxide 30 H (19-29) mEq/L BUN 15 (8-26) mg/dL Creatinine 0.79 (0.72-1.25) mg/dL Glucose 123 H (70-99) mg/dL Calcium 8.9 (8.6-10.8) mg/dL Adrenal panel 09/25/16 Range/Units 04:15 Sodium 138 (136-145) mEq/L Potassium 3.2 L (3.5-4.5) mEq/L Chloride 101 (98-109) mEq/L Carbon Dioxide 30 H (19-29) mEq/L BUN 15 (8-26) mg/dL Creatinine 0.79 (0.72-1.25) mg/dL Glucose 123 H (70-99) mg/dL Calcium 8.9 (8.6-10.8) mg/dL - Imaging CT scan - abdomen: report reviewed, image reviewed CT scan - pelvis: report reviewed, image reviewed - Attending Attestation I examined this patient and my medical decision-making was reviewed with the TECHNICAL SALES CONSULTANT/PA/Advanced Practice Nurse/Resident Physician. I agree with the documented findings, disposition and treatment plan as described except to the extent set forth below.
[2016-09-24] MEDS ORDERED: D10% in Water 500 ML IVC PRN (11:57)
[2016-09-24] MEDS: *HR* HYDROmorphone (PF) 1 MG/ML SYRINGE IVP PRN ×3 (11:57→20:22)
[2016-09-24 12:30] LABS: Triglycerides 194 mg/dL (< 150)
[2016-09-24 15:09] LABS: Alpha 2 Globulin (PEP) 1.18 g/dL (0.48-1.05); Beta Globulin (PEP) 0.85 g/dL (0.48-1.10)
[2016-09-24 15:20] LABS: IFE Reflexed NOT DONE
[2016-09-24] MEDS: Clinimix E 5%-15% SOLUTION 2,000 ML with MVI, adult with vitamin K 10 ML IVC SCH (18:18)
[2016-09-24] MEDS: Gabapentin 300 MG CAPSULE PO SCH (20:23)
[2016-09-25 04:19] LABS: Eosinophils # 0.3 K/mcL (0.0-0.6); Hematocrit 35.5 % (37.5-50.1); Hemoglobin 12.3 g/dL (12.9-16.9); Mean Corpuscular HGB Conc 34.6 g/dL (31.6-35.5); Mean Corpuscular Hemoglobin 29.2 pg (28.0-33.3); Mean Corpuscular Volume 84.3 fL (83.0-100.0); Mean Platelet Volume 8.8 fL (9.4-12.4); Platelet Count 204 K/mcL (140-400); Red Blood Count 4.21 M/mcL (4.19-5.50); Red Cell Distribution Width 12.5 % (11.5-14.5)
[2016-09-25 04:32] LABS: BUN/Creatinine Ratio 19 (6-26); Blood Urea Nitrogen 15 mg/dL (8-26); Calcium 8.9 mg/dL (8.6-10.8); Carbon Dioxide 30 mEq/L (19-29); Chloride 101 mEq/L (98-109); Glucose 123 mg/dL (70-99); Magnesium 1.7 mg/dL (1.6-2.6); Osmolality,Calculated 288 (280-300); Phosphorous 3.3 mg/dL (2.3-4.7); Potassium 3.2 mEq/L (3.5-4.5); Sodium 138 mEq/L (136-145); eGFR For African Americans > 60 (> 60); eGFR For Non-African Americans > 60 (> 60)
[2016-09-25 04:41] LABS: Lymphocytes # 1.5 K/mcL (0.6-4.6); Monocytes # 0.3 K/mcL (0.0-1.3); Neutrophils # 5.5 K/mcL (1.6-8.9); Platelet Estimate Normal (Normal)
[2016-09-25] MEDS: *HR* Heparin 5,000 UNIT/ML VIAL SQ SCH ×3 (05:54→20:54)
[2016-09-25] MEDS: Piperacillin/Tazobactam 3.375 GM in D5% in Water (Mini-Bag+) 100 ML IVPB SCH ×2 (08:47→16:24)
[2016-09-25] MEDS: *HR* LORazepam 2 MG/ML VIAL IVP SCH ×2 (08:48→20:54)
--- NOTE | 2016-09-25 09:09 | General Surgery Progress Note ---
<Mil Ocampo - Last Filed: 09/25/16 13:14> Date of Encounter: 09/25/16 Time of Encounter: 08:45 - Assessment and Plan (1) Acute appendicitis Current Visit: Yes Status: Acute Continue bowel rest NGT d/c yesterday NPO IVF TPN with IJ Monitor bowel function - no BM with minimal flatus today IV Abx - Zosyn Supportive care Pain is well controlled at this time CBC WNL, no leukocystosis. Afebrile. Qualifiers: Acute appendicitis type: with localized peritonitis Qualified Code(s): K35.3 - Acute appendicitis with localized peritonitis (2) Ileus Current Visit: Yes Status: Acute KUB yesterday demonstrated dilated loops of small bowel consistent with partial small bowel obstruction. 2 View Abd XR ordered today and will correlate. Will conservative management with: Bowel rest NPO except ice chips and Popsicle TPN IVF VA Dulcolax ordered. BS present and waiting on bowel function (3) Hypokalemia Current Visit: Yes Status: Acute K down to 3.2. Replacing. Recheck in am. Subjective Narrative: Mr. Chapman in resting comfortably in bed this morning with nurse at bedside. No concerns overnight per nursing. NGT was accidently pulled and d/c. No BM noted and a "puff of flatus" per patient. VSS and Good urine output. Objective Vital Signs - Last 8 Hours Temp Pulse Resp BP Pulse Ox 09/25/16 07:10 98.3 F 72 14 138/74 95 09/25/16 03:07 99.0 F 77 14 143/82 94 Intake and Output 09/24/16 09/25/16 09/25/16 23:59 07:59 15:59 Intake Total 100 / 100 350 / 350 Output Total 1900 / 1900 675 / 675 Balance -1800 / -1800 -325 / -325 Intake: IV Fluids 100 / 100 350 / 350 Intralipid 20% 250 ML @ 250 / 250 21 mls/hr IVPB DAILY@1700 [facility] Rx#:[id number] Zosyn 3.375 GM In 100 / 100 100 / 100 Dextrose 5% (Minibag+) 100 ML 100 ML @ 25 mls/hr IVPB Q8H [facility] Rx#: [id number] Oral 0 / 0 0 / 0 Output: Catheter 800 / 800 675 / 675 Gastric Drainage 1100 / 1100 Other: Weight 105.233 kg Blood Glucose* 101 130 Patient Weight 09/25/16 23:59 Weight 105.233 kg - General physical appearance obese - Eyes normal ocular movement - Neck Neck exam: trachea midline - Respiratory normal respiratory effort, clear to auscultation - Cardiovascular Cardiovascular exam: Present: RRR - Abdomen Abdomen: Present: soft, distended (minimal, though patient cautiously claims this is normal), tender (epigastric). Absent: bowel sounds present - Neurologic CN 2-12 grossly intact - Psychiatric oriented to time, oriented to person, oriented to place, speech is normal, memory intact - Labs 09/25/16 04:15 09/25/16 04:15 Diabetes panel 09/24/16 09/25/16 Range/Units 04:30 04:15 Sodium 138 (136-145) mEq/L Potassium 3.2 L (3.5-4.5) mEq/L Chloride 101 (98-109) mEq/L Carbon Dioxide 30 H (19-29) mEq/L BUN 15 (8-26) mg/dL Creatinine 0.79 (0.72-1.25) mg/dL Glucose 123 H (70-99) mg/dL Calcium 8.9 (8.6-10.8) mg/dL Triglycerides 194 H (< 150) mg/dL Calcium panel 09/25/16 Range/Units 04:15 Calcium 8.9 (8.6-10.8) mg/dL Phosphorus 3.3 (2.3-4.7) mg/dL Pituitary panel 09/25/16 Range/Units 04:15 Sodium 138 (136-145) mEq/L Potassium 3.2 L (3.5-4.5) mEq/L Chloride 101 (98-109) mEq/L Carbon Dioxide 30 H (19-29) mEq/L BUN 15 (8-26) mg/dL Creatinine 0.79 (0.72-1.25) mg/dL Glucose 123 H (70-99) mg/dL Calcium 8.9 (8.6-10.8) mg/dL Adrenal panel 09/25/16 Range/Units 04:15 Sodium 138 (136-145) mEq/L Potassium 3.2 L (3.5-4.5) mEq/L Chloride 101 (98-109) mEq/L Carbon Dioxide 30 H (19-29) mEq/L BUN 15 (8-26) mg/dL Creatinine 0.79 (0.72-1.25) mg/dL Glucose 123 H (70-99) mg/dL Calcium 8.9 (8.6-10.8) mg/dL - VTE Documentation of Mechanical Device: Intermittent pneumatic compression device Consult Discharge Plan - Plan Referrals: Natividad Roberto, SUNITA [Primary Care Provider] - <Nerissa Anand - Last Filed: 09/25/16 14:09> Date of Encounter: 09/25/16 Time of Encounter: 12:10 - Assessment and Plan (1) Abdominal pain Current Visit: Yes Status: Acute prn pain Qualifiers: Abdominal location: epigastric Qualified Code(s): R10.13 - Epigastric pain (2) Acute appendicitis Current Visit: Yes Status: Acute patient pulled out ngt overnight, had 1650cc, pt refusing to have it replaced check AXR npo prn pain control has bowel sounds, no flatus or bm, will give dulcolax suppository to see if can stimulate bowels continue abx Qualifiers: Acute appendicitis type: with localized peritonitis Qualified Code(s): K35.3 - Acute appendicitis with localized peritonitis (3) DVT prophylaxis Current Visit: Yes Status: Acute heparin sq (4) Ileus Current Visit: Yes Status: Acute await return of bowel function Subjective Patient reports: still having pain, pain is less, no flatus, no bowel movement, nausea Objective Vital Signs - Last 8 Hours Temp Pulse Resp BP Pulse Ox 09/25/16 11:42 98.3 F 76 14 128/72 95 09/25/16 07:10 98.3 F 72 14 138/74 95 Intake and Output 09/24/16 09/25/16 09/25/16 23:59 07:59 15:59 Intake Total 100 / 100 350 / 350 0 / 0 Output Total 1900 / 1900 675 / 675 550 / 550 Balance -1800 / -1800 -325 / -325 -550 / -550 Intake: IV Fluids 100 / 100 350 / 350 Intralipid 20% 250 ML @ 250 / 250 21 mls/hr IVPB DAILY@1700 [facility] Rx#:[id number] Zosyn 3.375 GM In 100 / 100 100 / 100 Dextrose 5% (Minibag+) 100 ML 100 ML @ 25 mls/hr IVPB Q8H [facility] Rx#: [id number] Oral 0 / 0 0 / 0 0 / 0 Output: Catheter 800 / 800 675 / 675 550 / 550 Gastric Drainage 1100 / 1100 Other: Meal NPO Weight 105.233 kg Blood Glucose* 101 113 116 Patient Weight 09/25/16 23:59 Weight 105.233 kg - General physical appearance well nourished, no distress, obese - Eyes PERRL, normal ocular movement - ENT normal mucosa, dry mucosa, normocephalic - Neck Neck exam: trachea midline - Respiratory normal expansion, clear to auscultation - Cardiovascular Cardiovascular exam: Present: RRR - Abdomen Abdomen: Present: bowel sounds present, soft, distended, tender - Integumentary no rash, no growths - Neurologic CN 2-12 grossly intact - Musculoskeletal normal posture - Psychiatric oriented to time, oriented to person, memory intact - Labs 09/25/16 04:15 09/25/16 04:15 Short CBC 09/25/16 Range/Units 04:15 WBC 7.6 (4.3-11.1) K/mcL Hgb 12.3 L (12.9-16.9) g/dL Hct 35.5 L (37.5-50.1) % Plt Count 204 (140-400) K/mcL Neutrophils # 5.5 (1.6-8.9) K/mcL BMP 09/25/16 Range/Units 04:15 Sodium 138 (136-145) mEq/L Potassium 3.2 L (3.5-4.5) mEq/L Chloride 101 (98-109) mEq/L Carbon Dioxide 30 H (19-29) mEq/L BUN 15 (8-26) mg/dL Creatinine 0.79 (0.72-1.25) mg/dL Glucose 123 H (70-99) mg/dL Calcium 8.9 (8.6-10.8) mg/dL Vital Signs Temp Pulse Resp BP Pulse Ox 09/25/16 11:42 98.3 F 76 14 128/72 95 09/25/16 07:10 98.3 F 72 14 138/74 95 09/25/16 03:07 99.0 F 77 14 143/82 94 09/24/16 23:15 98.2 F 81 14 131/78 94 09/24/16 19:03 98.9 F 73 16 146/85 94 Intake and Output 09/24/16 09/25/16 09/25/16 23:59 07:59 15:59 Intake Total 100 / 100 350 / 350 0 / 0 Output Total 1900 / 1900 675 / 675 550 / 550 Balance -1800 / -1800 -325 / -325 -550 / -550 Intake: IV Fluids 100 / 100 350 / 350 Intralipid 20% 250 ML @ 250 / 250 21 mls/hr IVPB DAILY@1700 [facility] Rx#:[id number] Zosyn 3.375 GM In 100 / 100 100 / 100 Dextrose 5% (Minibag+) 100 ML 100 ML @ 25 mls/hr IVPB Q8H [facility] Rx#: [id number] Oral 0 / 0 0 / 0 0 / 0 Output: Catheter 800 / 800 675 / 675 550 / 550 Gastric Drainage 1100 / 1100 Other: Meal NPO Weight 105.233 kg Blood Glucose* 101 113 116 Patient Weight 09/25/16 23:59 Weight 105.233 kg - Attending Attestation I examined this patient and my medical decision-making was reviewed with the SNAP SHEARER/PA/Advanced Practice Nurse/Resident Physician. I agree with the documented findings, disposition and treatment plan as described except to the extent set forth below.
[2016-09-25] MEDS ORDERED: Bisacodyl 10 MG RECTAL SUPPOSITORY RC ONE (12:54)
--- NOTE | 2016-09-25 14:18 | Internal Med Progress Note ---
Date of Encounter: 09/25/16 Time of Encounter: 14:15 - Assessment and plan (1) Acute appendicitis with peritonitis Current Visit: Yes Status: Acute Assessment and plan: Septic shock secondary to perforated acute appendicitis/phlegmon formation/ abscess , developed ileus KUB demonstrated dilated loops of small bowel consistent with partial small bowel obstruction. Continue IV Zosyn day 5, IV fluids Not requiring pressors, out of the ICU The patient pulled out his NG tube on 09/24/16 Nothing by mouth Gen. surgery recommendations appreciated TPN (2) Sepsis Current Visit: Yes Status: Acute Assessment and plan: Septic shock Likely due to appendicitis Continue IV Zosyn, IV fluids Qualifiers: Sepsis type: sepsis due to unspecified organism Qualified Code(s): A41.9 - Sepsis, unspecified organism (3) Hypotension Current Visit: Yes Status: Acute Qualifiers: Hypotension type: unspecified hypotension type Qualified Code(s): I95.9 - Hypotension, unspecified (4) PATIENCE (acute kidney injury) Current Visit: Yes Status: Acute Assessment and plan: Likely secondary to sepsis and hypotension Continue IV fluids, resolved Nephrology following (5) Depression Current Visit: Yes Status: Acute Assessment and plan: Resumed venlafaxine to avoid withdrawal Qualifiers: Depression Type: major depressive disorder Active/Remission status: remission status unspecified Qualified Code(s): F32.9 - Major depressive disorder, single episode, unspecified (6) Hypokalemia Current Visit: Yes Status: Acute Assessment and plan: replete with TPN - Subjective Interval history: Has abdominal pain mainly in the lower quadrants 6 out of 10, distention, nausea , no chest pain, mild shortness of breath, no dysuria, says he is not passing gas - Constitutional Vitals: Temp Pulse Resp BP Pulse Ox 98.3 F 76 14 128/72 95 09/25/16 11:42 09/25/16 11:42 09/25/16 11:42 09/25/16 11:42 09/25/16 11:42 General appearance: Present: A&O X 3, no acute distress, answers questions appropriately Exam: General appearance: Present: A&O X 3, no acute distress, answers questions appropriately - Head Head exam: Present: atraumatic, normocephalic Additional comments: - Eye Eye exam: Present: PERRL, conjuntiva pink, sclera anicteric Pupils: Present: PERRL - Neck Neck exam general surgery: Present: supple, trachea midline. Absent: lymphadenopathy - Respiratory Respiratory exam: Present: decreased breath sounds, CTAB. Absent: accessory muscle use, rales, rhonchi, wheezes - Cardiovascular Cardiovascular exam: Present: RRR, +S1, +S2. Absent: diastolic murmur, gallop, rubs, systolic murmur - GI/Abdominal GI/Abdominal exam: Present: distended (Abdomen is very distended and tender to touch in the right lower quadrant), hypoactive bowel sounds, , soft, tenderness , no peritoneal signs - Extremities Exam Extremities exam: Present: warm, radial pulses palpable and symetrical. Absent : calf tenderness, cyanotic, pedal edema - Neurological Exam Neurological exam: Present: CN II-XII intact, oriented X3, no focal deficits. Absent: pronater drift, facial droop, speech deficit - Skin Skin exam: Present: dry, intact Internal Medicine: Result - Labs CBC & Chem 7: 09/25/16 04:15 09/25/16 04:15 Labs: Short CBC 09/25/16 Range/Units 04:15 WBC 7.6 (4.3-11.1) K/mcL Hgb 12.3 L (12.9-16.9) g/dL Hct 35.5 L (37.5-50.1) % Plt Count 204 (140-400) K/mcL Neutrophils # 5.5 (1.6-8.9) K/mcL BMP 09/25/16 04:15 Sodium 138 Potassium 3.2 L Chloride 101 Carbon Dioxide 30 H BUN 15 Creatinine 0.79 Glucose 123 H Calcium 8.9 - ABG Interpretation ABG results: PT/INR, D-dimer PT 15.0 Seconds (9.4-12.1) H 09/21/16 12:34 - Impressions Impressions KUB X-Ray 09/24/16 13:20 IMPRESSION: Enteric tube in the stomach as above. Dilated small bowel compatible with partial small-bowel obstruction D/ / Robbie Burnham MD / Robbie Burnham MD Interpreting Provider: Robbie Burnham MD - VTE Documentation of Mechanical Device: Intermittent pneumatic compression device Consult Discharge Plan - Plan Referrals: Natividad Roberto CNP [Primary Care Provider] -
[2016-09-25] MEDS: *HR* HYDROmorphone (PF) 1 MG/ML SYRINGE IVP PRN ×2 (14:19→20:55)
[2016-09-25] MEDS: Clinimix E 5%-15% SOLUTION 2,000 ML with MVI, adult with vitamin K 10 ML IVC SCH ×2 (17:16→17:45)
[2016-09-25] MEDS: Gabapentin 300 MG CAPSULE PO SCH (20:55)
[2016-09-26] MEDS: Piperacillin/Tazobactam 3.375 GM in D5% in Water (Mini-Bag+) 100 ML IVPB SCH ×4 (00:16→23:36)
[2016-09-26 04:23] LABS: BUN/Creatinine Ratio 14 (6-26); Blood Urea Nitrogen 11 mg/dL (8-26); Carbon Dioxide 29 mEq/L (19-29); Chloride 103 mEq/L (98-109); Glucose 94 mg/dL (70-99); Magnesium 1.8 mg/dL (1.6-2.6); Osmolality,Calculated 287 (280-300); Phosphorous 3.7 mg/dL (2.3-4.7); Potassium 3.6 mEq/L (3.5-4.5); Sodium 139 mEq/L (136-145); eGFR For African Americans > 60 (> 60); eGFR For Non-African Americans > 60 (> 60)
[2016-09-26] MEDS: *HR* Heparin 5,000 UNIT/ML VIAL SQ SCH ×3 (04:43→21:14)
[2016-09-26] MEDS: *HR* HYDROmorphone (PF) 1 MG/ML SYRINGE IVP PRN ×8 (04:44→23:34)
--- NOTE | 2016-09-26 08:13 | General Surgery Progress Note ---
<Mil Ocampo - Last Filed: 09/26/16 08:19> Date of Encounter: 09/26/16 Time of Encounter: 08:09 - Assessment and Plan (1) Acute appendicitis Current Visit: Yes Status: Acute Continue bowel rest management: NPO IVF TPN with IJ Monitor bowel function - one BM noted last night after IN Dulcolax given. BS present on exam today. IV Abx - Zosyn day 6 Supportive care with antiemetics PRN Pain is well controlled at this time CBC WNL, no leukocystosis. Lytes normal with potassium back 3.6. Afebrile. Qualifiers: Acute appendicitis type: with localized peritonitis Qualified Code(s): K35.3 - Acute appendicitis with localized peritonitis (2) Small bowel obstruction, partial Current Visit: Yes Status: Acute KUB on 09/24/16 yesterday demonstrated dilated loops of small bowel consistent with partial small bowel obstruction. 2 View Abd XR on 09/25/16 demonstrated gaseous distention of small bowel with fluid levels Will continue conservative management with: Bowel rest NPO except ice chips and Popsicle TPN IVF BS present and had BM last night. Will place NGT if nausea/emesis returns or abd pain/distention worsens (3) Hypokalemia Current Visit: Yes Status: Acute Replaced. K 3.6. Subjective Patient reports: no new complaints, feels better, flatus, bowel movement (one last night), afebrile, other ("feels bloated still". Patient did well withvoid challenge last night with 200cc before dinner and 700cc since last night.) Objective Vital Signs - Last 8 Hours Temp Pulse Resp BP Pulse Ox 09/26/16 07:06 98.1 F 77 16 143/91 93 Intake and Output 09/25/16 09/26/16 09/26/16 23:59 07:59 15:59 Intake Total 2714 / 2714 100 / 100 Output Total 200 / 200 700 / 700 Balance 2514 / 2514 -600 / -600 Intake: IV Fluids 2714 / 2714 100 / 100 0.45% Sodium Chloride 404 / 404 1000 Ml 1000 Ml 1,000 ML @ 100 mls/hr IVC .Q10H [facility] Rx#:[id number] Clinimix E 5%-15% 2009 SOLUTION 2,000 ML @ 50 mls/hr IVC .Q24H [facility] with M.v.i. Adult 10 ml Rx#: [id number] Zosyn 3.375 GM In 100 / 100 100 / 100 Dextrose 5% (Minibag+) 100 ML 100 ML @ 25 mls/hr IVPB Q8H [facility] Rx#: [id number] Potassium Chloride 10 mEq 200 / 200 /100mL 10 meq In 100 ml @ 100 mls/hr IVPB Q1H [facility] Rx#:[id number] Oral 0 / 0 Output: Urine 200 / 200 700 / 700 Other: Meal NPO Percent of Meal Consumed 0% Blood Glucose* 106 130 - General physical appearance no distress, obese - Eyes normal ocular movement - Neck Neck exam: trachea midline - Respiratory normal respiratory effort, clear to auscultation - Cardiovascular Cardiovascular exam: Present: RRR - Abdomen Abdomen: Present: bowel sounds present, soft. Absent: distended, rebound Abdominal Tenderness: RLQ - Neurologic CN 2-12 grossly intact - Psychiatric oriented to time, oriented to person, oriented to place, speech is normal, memory intact - Labs 09/25/16 04:15 09/26/16 03:50 BMP 09/26/16 Range/Units 03:50 Sodium 139 (136-145) mEq/L Potassium 3.6 (3.5-4.5) mEq/L Chloride 103 (98-109) mEq/L Carbon Dioxide 29 (19-29) mEq/L BUN 11 (8-26) mg/dL Creatinine 0.79 (0.72-1.25) mg/dL Glucose 94 (70-99) mg/dL Calcium 9.0 (8.6-10.8) mg/dL Vital Signs Temp Pulse Resp BP Pulse Ox 09/26/16 07:06 98.1 F 77 16 143/91 93 09/25/16 23:28 98.4 F 77 159 123/78 97 09/25/16 20:30 98.3 F 79 16 143/78 95 09/25/16 11:42 98.3 F 76 14 128/72 95 Intake and Output 09/25/16 09/26/16 09/26/16 23:59 07:59 15:59 Intake Total 2714 / 2714 100 / 100 Output Total 200 / 200 700 / 700 Balance 2514 / 2514 -600 / -600 Intake: IV Fluids 2714 / 2714 100 / 100 0.45% Sodium Chloride 404 / 404 1000 Ml 1000 Ml 1,000 ML @ 100 mls/hr IVC .Q10H [facility] Rx#:[id number] Clinimix E 5%-15% 2009 SOLUTION 2,000 ML @ 50 mls/hr IVC .Q24H [facility] with M.v.i. Adult 10 ml Rx#: [id number] Zosyn 3.375 GM In 100 / 100 100 / 100 Dextrose 5% (Minibag+) 100 ML 100 ML @ 25 mls/hr IVPB Q8H [facility] Rx#: [id number] Potassium Chloride 10 mEq 200 / 200 /100mL 10 meq In 100 ml @ 100 mls/hr IVPB Q1H [facility] Rx#:[id number] Oral 0 / 0 Output: Urine 200 / 200 700 / 700 Other: Meal NPO Percent of Meal Consumed 0% Blood Glucose* 106 130 - VTE Documentation of Mechanical Device: Intermittent pneumatic compression device Consult Discharge Plan - Plan Referrals: Natividad Roberto ORAL THERAPIST [Primary Care Provider] - <Nerissa Anand - Last Filed: 09/26/16 13:47> Date of Encounter: 09/26/16 - Assessment and Plan (1) Abdominal pain Current Visit: Yes Status: Acute prn pain control, is improving Qualifiers: Abdominal location: epigastric Qualified Code(s): R10.13 - Epigastric pain (2) Acute appendicitis Current Visit: Yes Status: Acute start reglan, continue abx pt with bowel sounds and a few small flatus with resulting liquid at same time await better return of bowel function as even patient states he feels still distended ok ice chips and popcicles Qualifiers: Acute appendicitis type: with localized peritonitis Qualified Code(s): K35.3 - Acute appendicitis with localized peritonitis (3) DVT prophylaxis Current Visit: Yes Status: Acute (4) Ileus Current Visit: Yes Status: Acute seems to be improving, awaiting better return of bowel function Subjective Patient reports: no new complaints, feels better, still having pain, pain is less, flatus, bowel movement, afebrile, other (still feels distended, no nausea) Objective Vital Signs - Last 8 Hours Temp Pulse Resp BP Pulse Ox 09/26/16 10:33 97.9 F 84 16 126/86 95 07/09/17 07:06 98.1 F 77 16 143/91 93 Intake and Output 09/25/16 09/26/16 09/26/16 23:59 07:59 15:59 Intake Total 2714 / 2714 350 / 350 60 / 60 Output Total 200 / 200 700 / 700 450 / 450 Balance 2514 / 2514 -350 / -350 -390 / -390 Intake: IV Fluids 2714 / 2714 350 / 350 0.45% Sodium Chloride 404 / 404 1000 Ml 1000 Ml 1,000 ML @ 100 mls/hr IVC .Q10H [facility] Rx#:[id number] Clinimix E 5%-15% 2009 SOLUTION 2,000 ML @ 50 mls/hr IVC .Q24H [facility] with M.v.i. Adult 10 ml Rx#: [id number] Intralipid 20% 250 ML @ 250 / 250 21 mls/hr IVPB DAILY@1700 [facility] Rx#:[id number] Zosyn 3.375 GM In 100 / 100 100 / 100 Dextrose 5% (Minibag+) 100 ML 100 ML @ 25 mls/hr IVPB Q8H [facility] Rx#: [id number] Potassium Chloride 10 mEq 200 / 200 /100mL 10 meq In 100 ml @ 100 mls/hr IVPB Q1H [facility] Rx#:[id number] Oral 0 / 0 60 / 60 Output: Urine 200 / 200 700 / 700 450 / 450 Other: Meal NPO NPO Percent of Meal Consumed 0% Blood Glucose* 106 130 110 - General physical appearance well nourished, no distress, obese - Eyes PERRL, normal ocular movement - ENT normal mucosa, normocephalic - Neck Neck exam: trachea midline - Respiratory normal expansion, clear to auscultation - Cardiovascular Cardiovascular exam: Present: RRR - Abdomen Abdomen: Present: bowel sounds present (faint), soft, distended. Absent: guarding, rebound Abdominal Tenderness: RLQ - Integumentary no rash, no growths - Neurologic CN 2-12 grossly intact - Musculoskeletal normal posture - Psychiatric oriented to time, oriented to person, oriented to place, memory intact - Labs 09/25/16 04:15 09/26/16 03:50 BMP 09/26/16 Range/Units 03:50 Sodium 139 (136-145) mEq/L Potassium 3.6 (3.5-4.5) mEq/L Chloride 103 (98-109) mEq/L Carbon Dioxide 29 (19-29) mEq/L BUN 11 (8-26) mg/dL Creatinine 0.79 (0.72-1.25) mg/dL Glucose 94 (70-99) mg/dL Calcium 9.0 (8.6-10.8) mg/dL Vital Signs Temp Pulse Resp BP Pulse Ox 09/26/16 10:33 97.9 F 84 16 126/86 95 09/26/16 07:06 98.1 F 77 16 143/91 93 09/25/16 23:28 98.4 F 77 159 123/78 97 09/25/16 20:30 98.3 F 79 16 143/78 95 Intake and Output 09/25/16 09/26/16 09/26/16 23:59 07:59 15:59 Intake Total 2714 / 2714 350 / 350 60 / 60 Output Total 200 / 200 700 / 700 450 / 450 Balance 2514 / 2514 -350 / -350 -390 / -390 Intake: IV Fluids 2714 / 2714 350 / 350 0.45% Sodium Chloride 404 / 404 1000 Ml 1000 Ml 1,000 ML @ 100 mls/hr IVC .Q10H [facility] Rx#:[id number] Clinimix E 5%-15% 2009 SOLUTION 2,000 ML @ 50 mls/hr IVC .Q24H [facility] with M.v.i. Adult 10 ml Rx#: [id number] Intralipid 20% 250 ML @ 250 / 250 21 mls/hr IVPB DAILY@1700 [facility] Rx#:[id number] Zosyn 3.375 GM In 100 / 100 100 / 100 Dextrose 5% (Minibag+) 100 ML 100 ML @ 25 mls/hr IVPB Q8H [facility] Rx#: [id number] Potassium Chloride 10 mEq 200 / 200 /100mL 10 meq In 100 ml @ 100 mls/hr IVPB Q1H [facility] Rx#:[id number] Oral 0 / 0 60 / 60 Output: Urine 200 / 200 700 / 700 450 / 450 Other: Meal NPO NPO Percent of Meal Consumed 0% Blood Glucose* 106 130 110 - Attending Attestation I examined this patient and my medical decision-making was reviewed with the FITTER PLACER/PA/Advanced Practice Nurse/Resident Physician. I agree with the documented findings, disposition and treatment plan as described except to the extent set forth below.
[2016-09-26] MEDS: *HR* LORazepam 2 MG/ML VIAL IVP SCH ×2 (09:57→21:14)
[2016-09-26] MEDS ORDERED: Insulin LISPRO 300 UNITS/3 ML VIAL SQ ONE (12:10)
--- NOTE | 2016-09-26 14:10 | Internal Med Progress Note ---
Date of Encounter: 09/26/16 Time of Encounter: 14:08 - Assessment and plan (1) Acute appendicitis with peritonitis Current Visit: Yes Status: Acute Assessment and plan: Septic shock secondary to perforated acute appendicitis/phlegmon formation/ abscess , developed ileus KUB demonstrated dilated loops of small bowel consistent with partial small bowel obstruction. Continue IV Zosyn day 6, IV fluids Not requiring pressors, out of the ICU The patient pulled out his NG tube on 09/24/16 Nothing by mouth Gen. surgery recommendations appreciated TPN (2) Sepsis Current Visit: Yes Status: Acute Assessment and plan: Septic shock Likely due to appendicitis Continue IV Zosyn, IV fluids Qualifiers: Sepsis type: sepsis due to unspecified organism Qualified Code(s): A41.9 - Sepsis, unspecified organism (3) Hypotension Current Visit: Yes Status: Acute Qualifiers: Hypotension type: unspecified hypotension type Qualified Code(s): I95.9 - Hypotension, unspecified (4) PATIENCE (acute kidney injury) Current Visit: Yes Status: Acute Assessment and plan: Likely secondary to sepsis and hypotension Continue IV fluids, resolved Nephrology following (5) Depression Current Visit: Yes Status: Acute Assessment and plan: Resumed venlafaxine to avoid withdrawal Qualifiers: Depression Type: major depressive disorder Active/Remission status: remission status unspecified Qualified Code(s): F32.9 - Major depressive disorder, single episode, unspecified (6) Hypokalemia Current Visit: Yes Status: Acute Assessment and plan: repleted with TPN - Subjective Interval history: Has abdominal pain mainly in the lower quadrants 7 out of 10, distention, nausea , no chest pain, mild shortness of breath, no dysuria, says he had a bowel movement today - Constitutional Vitals: Temp Pulse Resp BP Pulse Ox 97.9 F 84 16 126/86 95 09/26/16 10:33 09/26/16 10:33 09/26/16 10:33 09/26/16 10:33 09/26/16 10:33 General appearance: Present: A&O X 3, no acute distress, answers questions appropriately - Head Head exam: Present: atraumatic, normocephalic Additional comments: Right IJ triple-lumen catheter - Eye Eye exam: Present: PERRL, conjuntiva pink, sclera anicteric Pupils: Present: PERRL - Neck Neck exam general surgery: Present: supple, trachea midline. Absent: lymphadenopathy - Respiratory Respiratory exam: Present: CTAB. Absent: accessory muscle use, rales, rhonchi, wheezes - Cardiovascular Cardiovascular exam: Present: RRR, +S1, +S2. Absent: diastolic murmur, gallop, rubs, systolic murmur - GI/Abdominal GI/Abdominal exam: Present: distended, normal bowel sounds, soft, tenderness ( lower quadrant tenderness), no peritoneal signs - Extremities Exam Extremities exam: Present: warm, radial pulses palpable and symetrical. Absent : calf tenderness, cyanotic, pedal edema - Neurological Exam Neurological exam: Present: CN II-XII intact, oriented X3, no focal deficits. Absent: pronater drift, facial droop, speech deficit - Skin Skin exam: Present: dry, intact Internal Medicine: Result - Labs CBC & Chem 7: 09/25/16 04:15 09/26/16 03:50 Labs: BMP 09/26/16 03:50 Sodium 139 Potassium 3.6 Chloride 103 Carbon Dioxide 29 BUN 11 Creatinine 0.79 Glucose 94 Calcium 9.0 - ABG Interpretation ABG results: PT/INR, D-dimer PT 15.0 Seconds (9.4-12.1) H 09/21/16 12:34 - Impressions Impressions Abdomen X-Ray 09/25/16 12:52 IMPRESSION: Gaseous distension of small bowel loops with fluid levels concerning for small bowel obstruction; the degree of distention is increased since the study performed yesterday D/ / Natividad Pacheco Cha, MD / Natividad Pacheco Cha, MD Interpreting Provider: Natividad Pacheco Cha, MD - VTE Documentation of Mechanical Device: Intermittent pneumatic compression device Consult Discharge Plan - Plan Referrals: Natividad Roberto CNP [Primary Care Provider] -
[2016-09-26] MEDS: Metoclopramide 10 MG/2 ML VIAL IVP SCH ×2 (16:37→23:35)
[2016-09-26] MEDS: Clinimix E 5%-15% SOLUTION 2,000 ML with MVI, adult with vitamin K 10 ML IVC SCH (16:38)
[2016-09-26] MEDS ORDERED: Clinimix E 5%-15% SOLUTION 2,000 ML with MVI, adult with vitamin K 10 ML IVC SCH (17:00)
[2016-09-26] MEDS: Gabapentin 300 MG CAPSULE PO SCH ×2 (21:15→21:21)
[2016-09-27] MEDS: *HR* HYDROmorphone (PF) 1 MG/ML SYRINGE IVP PRN ×3 (04:45→10:43)
[2016-09-27] MEDS: *HR* Heparin 5,000 UNIT/ML VIAL SQ SCH ×3 (05:20→22:24)
[2016-09-27] MEDS: Metoclopramide 10 MG/2 ML VIAL IVP SCH ×4 (05:20→23:13)
[2016-09-27 05:58] LABS: BUN/Creatinine Ratio 14 (6-26); Blood Urea Nitrogen 11 mg/dL (8-26); Calcium 8.8 mg/dL (8.6-10.8); Carbon Dioxide 27 mEq/L (19-29); Chloride 102 mEq/L (98-109); Glucose 95 mg/dL (70-99); Magnesium 1.8 mg/dL (1.6-2.6); Osmolality,Calculated 281 (280-300); Phosphorous 3.9 mg/dL (2.3-4.7); Potassium 3.4 mEq/L (3.5-4.5); Sodium 136 mEq/L (136-145); eGFR For African Americans > 60 (> 60); eGFR For Non-African Americans > 60 (> 60)
[2016-09-27 06:45] LABS: Hematocrit 36.3 % (37.5-50.1); Hemoglobin 12.2 g/dL (12.9-16.9); Mean Corpuscular HGB Conc 33.6 g/dL (31.6-35.5); Mean Corpuscular Volume 86.4 fL (83.0-100.0); Mean Platelet Volume 9.2 fL (9.4-12.4); Platelet Count 222 K/mcL (140-400); Red Cell Distribution Width 12.8 % (11.5-14.5)
[2016-09-27 07:27] LABS: Eosinophils # 0.3 K/mcL (0.0-0.6); Lymphocytes # 1.7 K/mcL (0.6-4.6); Monocytes # 0.2 K/mcL (0.0-1.3); Neutrophils # 5.2 K/mcL (1.6-8.9)
[2016-09-27 07:28] LABS: Platelet Estimate Normal (Normal); Polychromasia 1+ (Not Present)
[2016-09-27] MEDS: Piperacillin/Tazobactam 3.375 GM in D5% in Water (Mini-Bag+) 100 ML IVPB SCH ×3 (08:30→23:11)
[2016-09-27] MEDS: *HR* LORazepam 2 MG/ML VIAL IVP SCH ×2 (08:30→22:24)
--- NOTE | 2016-09-27 09:05 | Internal Med Progress Note ---
Date of Encounter: 09/27/16 Time of Encounter: 09:03 - Assessment and plan (1) Acute appendicitis with peritonitis Current Visit: Yes Status: Acute Assessment and plan: Septic shock secondary to perforated acute appendicitis/phlegmon formation/ abscess , developed ileus KUB demonstrated dilated loops of small bowel consistent with partial small bowel obstruction. Continue IV Zosyn day 7, IV fluids Not requiring pressors, out of the ICU The patient pulled out his NG tube on 09/24/16 Nothing by mouth, surgery to decide when to start diet/clear liquids Gen. surgery recommendations appreciated TPN (2) Sepsis Current Visit: Yes Status: Acute Assessment and plan: Septic shock Likely due to appendicitis Continue IV Zosyn, IV fluids Qualifiers: Sepsis type: sepsis due to unspecified organism Qualified Code(s): A41.9 - Sepsis, unspecified organism (3) Hypotension Current Visit: Yes Status: Acute Qualifiers: Hypotension type: unspecified hypotension type Qualified Code(s): I95.9 - Hypotension, unspecified (4) PATIENCE (acute kidney injury) Current Visit: Yes Status: Acute Assessment and plan: Likely secondary to sepsis and hypotension Continue IV fluids, resolved Nephrology following (5) Depression Current Visit: Yes Status: Acute Assessment and plan: Resumed venlafaxine to avoid withdrawal Qualifiers: Depression Type: major depressive disorder Active/Remission status: remission status unspecified Qualified Code(s): F32.9 - Major depressive disorder, single episode, unspecified (6) Hypokalemia Current Visit: Yes Status: Acute Assessment and plan: repleted with TPN - Subjective Interval history: No issues overnight. Has abdominal pain mainly in the lower quadrants 7 out of 10, distention, nausea , no chest pain, mild shortness of breath, no dysuria, says he had a bowel movement yesterday and is passing gas - Constitutional Vitals: Temp Pulse Resp BP Pulse Ox 98.3 F 81 15 118/76 97 09/27/16 07:35 09/27/16 07:35 09/27/16 07:35 09/27/16 07:35 09/27/16 07:35 General appearance: Present: A&O X 3, no acute distress, answers questions appropriately Exam: - Head Head exam: Present: atraumatic, normocephalic Additional comments: Right IJ triple-lumen catheter - Eye Eye exam: Present: PERRL, conjuntiva pink, sclera anicteric Pupils: Present: PERRL - Neck Neck exam general surgery: Present: supple, trachea midline. Absent: lymphadenopathy - Respiratory Respiratory exam: Present: CTAB. Absent: accessory muscle use, rales, rhonchi, wheezes - Cardiovascular Cardiovascular exam: Present: RRR, +S1, +S2. Absent: diastolic murmur, gallop, rubs, systolic murmur - GI/Abdominal GI/Abdominal exam: Present: distended, normal bowel sounds, soft, tenderness ( lower quadrant tenderness), no peritoneal signs - Extremities Exam Extremities exam: Present: warm, radial pulses palpable and symetrical. Absent : calf tenderness, cyanotic, pedal edema - Neurological Exam Neurological exam: Present: CN II-XII intact, oriented X3, no focal deficits. Absent: pronater drift, facial droop, speech deficit - Skin Skin exam: Present: dry, intact Internal Medicine: Result - Labs CBC & Chem 7: 09/27/16 04:50 09/27/16 04:50 Labs: Short CBC 09/27/16 Range/Units 04:50 WBC 7.6 (4.3-11.1) K/mcL Hgb 12.2 L (12.9-16.9) g/dL Hct 36.3 L (37.5-50.1) % Plt Count 222 (140-400) K/mcL Neutrophils # 5.2 (1.6-8.9) K/mcL BMP 09/27/16 04:50 Sodium 136 Potassium 3.4 L Chloride 102 Carbon Dioxide 27 BUN 11 Creatinine 0.79 Glucose 95 Calcium 8.8 - ABG Interpretation ABG results: PT/INR, D-dimer PT 15.0 Seconds (9.4-12.1) H 09/21/16 12:34 - VTE Documentation of Mechanical Device: Intermittent pneumatic compression device Consult Discharge Plan - Plan Referrals: Natividad Roberto HEEL SEAM RUBBER [Primary Care Provider] -
--- NOTE | 2016-09-27 09:39 | General Surgery Progress Note ---
<Mil Ocampo - Last Filed: 09/27/16 09:36> Date of Encounter: 09/27/16 Time of Encounter: 09:36 - Assessment and Plan (1) Acute appendicitis Current Visit: Yes Status: Acute Continue bowel rest management: NPO IVF TPN with IJ Monitor bowel function - one BM noted last night. BS present on exam today. IV Abx - Zosyn day 7 Supportive care with antiemetics PRN Pain is well controlled at this time CBC WNL, no leukocystosis or shift. Qualifiers: Acute appendicitis type: with localized peritonitis Qualified Code(s): K35.3 - Acute appendicitis with localized peritonitis (2) Small bowel obstruction, partial Current Visit: Yes Status: Acute KUB on 09/24/16 yesterday demonstrated dilated loops of small bowel consistent with partial small bowel obstruction. 2 View Abd XR on 09/25/16 demonstrated gaseous distention of small bowel with fluid levels Will continue conservative management with: Bowel rest NPO except ice chips and Popsicle TPN IVF BS present and had BM last night. Small. Patient is refusing NGT but will need to replace if nausea/emesis returns or abd pain/distention worsens (3) Hypokalemia Current Visit: Yes Status: Acute Replacing. K 3.4 today. rechecking tomorrow Subjective Patient reports: no new complaints, feels better, voiding w/o difficulty, flatus , bowel movement, afebrile, other (still feel distended in abd) Objective Vital Signs - Last 8 Hours Temp Pulse Resp BP Pulse Ox 09/27/16 07:35 98.3 F 81 15 118/76 97 09/27/16 04:46 98.5 F 77 18 115/71 96 Intake and Output 09/26/16 09/27/16 09/27/16 23:59 07:59 15:59 Intake Total 3442 / 3442 200 / 200 Output Total 680 / 680 1275 / 1275 Balance 2762 / 2762 -1075 / -1075 Intake: IV Fluids 3442 / 3442 200 / 200 0.45% Sodium Chloride 332 / 332 100 / 100 1000 Ml 1000 Ml 1,000 ML @ 100 mls/hr IVC .Q10H [facility] Rx#:[id number] Clinimix E 5%-15% 3010 / 3010 SOLUTION 2,000 ML @ 83.3 mls/hr IVC .Q24H [facility] with M.v.i. Adult 10 ml Rx#: [id number] Zosyn 3.375 GM In 100 / 100 100 / 100 Dextrose 5% (Minibag+) 100 ML 100 ML @ 25 mls/hr IVPB Q8H [facility] Rx#: [id number] Oral 0 / 0 0 / 0 Output: Urine 680 / 680 1275 / 1275 Other: Meal NPO for supper NPO Stool Size Small Stool Consistency formed Stool Characteristics Seedy Stool Color Brown Blood Glucose* 90 103 - General physical appearance no distress, obese - Eyes normal ocular movement - ENT normal mucosa - Neck Neck exam: trachea midline - Respiratory normal respiratory effort, clear to auscultation - Cardiovascular Cardiovascular exam: Present: RRR, no murmurs/rubs/gallops - Abdomen Abdomen: Present: bowel sounds present, soft, distended (mild), tender (RLQ). Absent: guarding, rebound - Neurologic CN 2-12 grossly intact - Psychiatric oriented to time, oriented to person, oriented to place, speech is normal, memory intact - Labs 09/27/16 04:50 09/27/16 04:50 Short CBC 09/27/16 Range/Units 04:50 WBC 7.6 (4.3-11.1) K/mcL Hgb 12.2 L (12.9-16.9) g/dL Hct 36.3 L (37.5-50.1) % Plt Count 222 (140-400) K/mcL Neutrophils # 5.2 (1.6-8.9) K/mcL BMP 09/27/16 Range/Units 04:50 Sodium 136 (136-145) mEq/L Potassium 3.4 L (3.5-4.5) mEq/L Chloride 102 (98-109) mEq/L Carbon Dioxide 27 (19-29) mEq/L BUN 11 (8-26) mg/dL Creatinine 0.79 (0.72-1.25) mg/dL Glucose 95 (70-99) mg/dL Calcium 8.8 (8.6-10.8) mg/dL Vital Signs Temp Pulse Resp BP Pulse Ox 09/27/16 07:35 98.3 F 81 15 118/76 97 09/27/16 04:46 98.5 F 77 18 115/71 96 09/26/16 23:58 98.4 F 82 17 111/6 94 09/26/16 19:52 98.2 F 80 17 138/84 97 09/26/16 17:03 98.6 F 72 16 124/84 94 09/26/16 10:33 97.9 F 84 16 126/86 95 Intake and Output 09/26/16 09/27/16 09/27/16 23:59 07:59 15:59 Intake Total 3442 / 3442 200 / 200 Output Total 680 / 680 1275 / 1275 Balance 2762 / 2762 -1075 / -1075 Intake: IV Fluids 3442 / 3442 200 / 200 0.45% Sodium Chloride 332 / 332 100 / 100 1000 Ml 1000 Ml 1,000 ML @ 100 mls/hr IVC .Q10H [facility] Rx#:[id number] Clinimix E 5%-15% 3010 / 3010 SOLUTION 2,000 ML @ 83.3 mls/hr IVC .Q24H [facility] with M.v.i. Adult 10 ml Rx#: [id number] Zosyn 3.375 GM In 100 / 100 100 / 100 Dextrose 5% (Minibag+) 100 ML 100 ML @ 25 mls/hr IVPB Q8H [facility] Rx#: [id number] Oral 0 / 0 0 / 0 Output: Urine 680 / 680 1275 / 1275 Other: Meal NPO for supper NPO Stool Size Small Stool Consistency formed Stool Characteristics Seedy Stool Color Brown Blood Glucose* 90 103 - VTE Documentation of Mechanical Device: Intermittent pneumatic compression device Consult Discharge Plan - Plan Referrals: Natividad Roberto CNP [Primary Care Provider] - <Nerissa Anand - Last Filed: 09/27/16 17:45> Date of Encounter: 09/27/16 - Assessment and Plan (1) Abdominal pain Current Visit: Yes Status: Acute decreased iv pain medication dose Qualifiers: Abdominal location: epigastric Qualified Code(s): R10.13 - Epigastric pain (2) Acute appendicitis Current Visit: Yes Status: Acute start clears, hold if nausea or emesis decreased pain medication continue abx, normal wbc count Qualifiers: Acute appendicitis type: with localized peritonitis Qualified Code(s): K35.3 - Acute appendicitis with localized peritonitis (3) DVT prophylaxis Current Visit: Yes Status: Acute (4) Ileus Current Visit: Yes Status: Acute Subjective Narrative: patient complains of a little nausea, is passing flatus and had a bm abdominal pain is improved Objective Vital Signs - Last 8 Hours Temp Pulse Resp BP Pulse Ox 09/27/16 14:54 98.4 F 85 15 130/79 94 09/27/16 11:09 98.3 F 85 15 121/81 96 Intake and Output 09/27/16 09/27/16 09/27/16 07:59 15:59 23:59 Intake Total 200 / 200 100 / 100 Output Total 1275 / 1275 825 / 825 Balance -1075 / -1075 -725 / -725 Intake: IV Fluids 200 / 200 100 / 100 0.45% Sodium Chloride 100 / 100 1000 Ml 1000 Ml 1,000 ML @ 100 mls/hr IVC .Q10H [facility] Rx#:[id number] Zosyn 3.375 GM In 100 / 100 100 / 100 Dextrose 5% (Minibag+) 100 ML 100 ML @ 25 mls/hr IVPB Q8H [facility] Rx#: [id number] Oral 0 / 0 0 / 0 Output: Urine 1275 / 1275 825 / 825 Other: Meal NPO # Bowel Movement Diapers 1 Blood Glucose* 103 102 97 - General physical appearance well nourished, no distress - Eyes normal ocular movement - ENT normal mucosa, normocephalic - Neck Neck exam: trachea midline - Respiratory normal expansion, clear to auscultation - Cardiovascular Cardiovascular exam: Present: RRR - Abdomen Abdomen: Present: bowel sounds present, soft, tender. Absent: guarding, rebound Abdominal Tenderness: RLQ - Integumentary no rash, no growths - Neurologic CN 2-12 grossly intact - Musculoskeletal normal posture - Psychiatric oriented to time, oriented to person, memory intact - Labs 09/27/16 04:50 09/27/16 04:50 Short CBC 09/27/16 Range/Units 04:50 WBC 7.6 (4.3-11.1) K/mcL Hgb 12.2 L (12.9-16.9) g/dL Hct 36.3 L (37.5-50.1) % Plt Count 222 (140-400) K/mcL Neutrophils # 5.2 (1.6-8.9) K/mcL BMP 09/27/16 Range/Units 04:50 Sodium 136 (136-145) mEq/L Potassium 3.4 L (3.5-4.5) mEq/L Chloride 102 (98-109) mEq/L Carbon Dioxide 27 (19-29) mEq/L BUN 11 (8-26) mg/dL Creatinine 0.79 (0.72-1.25) mg/dL Glucose 95 (70-99) mg/dL Calcium 8.8 (8.6-10.8) mg/dL Vital Signs Temp Pulse Resp BP Pulse Ox 09/27/16 14:54 98.4 F 85 15 130/79 94 09/27/16 11:09 98.3 F 85 15 121/81 96 09/27/16 07:35 98.3 F 81 15 118/76 97 09/27/16 04:46 98.5 F 77 18 115/71 96 09/26/16 23:58 98.4 F 82 17 111/6 94 09/26/16 19:52 98.2 F 80 17 138/84 97 Intake and Output 09/27/16 09/27/16 09/27/16 07:59 15:59 23:59 Intake Total 200 / 200 100 / 100 Output Total 1275 / 1275 825 / 825 Balance -1075 / -1075 -725 / -725 Intake: IV Fluids 200 / 200 100 / 100 0.45% Sodium Chloride 100 / 100 1000 Ml 1000 Ml 1,000 ML @ 100 mls/hr IVC .Q10H [facility] Rx#:[id number] Zosyn 3.375 GM In 100 / 100 100 / 100 Dextrose 5% (Minibag+) 100 ML 100 ML @ 25 mls/hr IVPB Q8H [facility] Rx#: [id number] Oral 0 / 0 0 / 0 Output: Urine 1275 / 1275 825 / 825 Other: Meal NPO # Bowel Movement Diapers 1 Blood Glucose* 103 102 97 - Attending Attestation I examined this patient and my medical decision-making was reviewed with the TUBE REPAIRER/PA/Advanced Practice Nurse/Resident Physician. I agree with the documented findings, disposition and treatment plan as described except to the extent set forth below.
[2016-09-27] MEDS ORDERED: Potassium Chloride 20 MEQ, Lidocaine 1% 2 ML in D5% in Water 250 ML IVPB ONE (15:06)
[2016-09-27] MEDS ORDERED: *HR* Dextrose 50 % in Water (Syg) 50 ML SYRINGE IVP PRN (15:48)
[2016-09-27] MEDS ORDERED: D5% in Water 1,000 ML IVC PRN (15:48)
[2016-09-27] MEDS ORDERED: Dextrose Gel 15 GM PO PRN ×2 (15:48)
[2016-09-27] MEDS: *HR* HYDROmorphone 2 MG/ML SYRINGE IVP PRN ×3 (15:53→23:12)
[2016-09-27] MEDS ORDERED: Clinimix E 5%-15% SOLUTION 2,000 ML with MVI, adult with vitamin K 10 ML IVC SCH (17:00)
[2016-09-27] MEDS: Insulin LISPRO 300 UNITS/3 ML VIAL SQ SCH ×3 (17:48→23:22)
[2016-09-27] MEDS ORDERED: Lidocaine 1% 20 ML MDV INFILT ONE (22:00)
--- NOTE | 2016-09-27 22:16 | Event Note ---
Date of Encounter: 09/27/16 Time of Encounter: 22:13 I was asked to evaluate the patient for a non-functioning central venous catheter. When I entered the room the patient had a right internal jugular vein central venous catheter present that was folded over and kinked at the hub. Initially all 3 ports were tested and none of them are blood or flushed. Then, under sterile technique I removed the dressing and sutures and straightened out the catheter. Of note the catheter was found to be withdrawn slightly, the catheter was not advanced. All 3 ports were tested again and all 3 ports were found to flushed easily and the blue and brown port would draw blood easily. The white port would not draw blood. The area was then cleaned again with ChloraPrep and the catheter was sutured in place. Biopatch and sterile dressing were applied. After completion of repositioning and restructuring the catheter all 3 ports were again tested and shown to flushed easily and the blue and brown port continued to drop blood easily with the white port was not drawing blood.
[2016-09-27] MEDS: Gabapentin 300 MG CAPSULE PO SCH (22:24)
[2016-09-28] MEDS: Insulin LISPRO 300 UNITS/3 ML VIAL SQ SCH ×3 (03:57→12:28)
[2016-09-28 04:57] LABS: Hematocrit 37.5 % (37.5-50.1); Hemoglobin 12.8 g/dL (12.9-16.9); Mean Corpuscular HGB Conc 34.1 g/dL (31.6-35.5); Mean Platelet Volume 8.7 fL (9.4-12.4); Platelet Count 234 K/mcL (140-400); Red Blood Count 4.41 M/mcL (4.19-5.50); Red Cell Distribution Width 12.9 % (11.5-14.5)
[2016-09-28 05:15] LABS: BUN/Creatinine Ratio 13 (6-26); Blood Urea Nitrogen 10 mg/dL (8-26); Calcium 8.9 mg/dL (8.6-10.8); Carbon Dioxide 26 mEq/L (19-29); Chloride 103 mEq/L (98-109); Glucose 99 mg/dL (70-99); Magnesium 1.9 mg/dL (1.6-2.6); Osmolality,Calculated 279 (280-300); Phosphorous 3.6 mg/dL (2.3-4.7); Potassium 3.8 mEq/L (3.5-4.5); Sodium 135 mEq/L (136-145); eGFR For African Americans > 60 (> 60); eGFR For Non-African Americans > 60 (> 60)
[2016-09-28] MEDS: *HR* Heparin 5,000 UNIT/ML VIAL SQ SCH ×3 (05:42→21:30)
[2016-09-28] MEDS: Metoclopramide 10 MG/2 ML VIAL IVP SCH ×3 (06:33→16:16)
[2016-09-28] MEDS: *HR* HYDROmorphone 2 MG/ML SYRINGE IVP PRN ×2 (06:34→12:24)
[2016-09-28] MEDS: Piperacillin/Tazobactam 3.375 GM in D5% in Water (Mini-Bag+) 100 ML IVPB SCH ×2 (08:56→16:16)
[2016-09-28] MEDS: *HR* LORazepam 2 MG/ML VIAL IVP SCH ×2 (08:56→21:29)
--- NOTE | 2016-09-28 09:57 | Internal Med Progress Note ---
Date of Encounter: 09/28/16 Time of Encounter: 09:55 - Assessment and plan (1) Acute appendicitis with peritonitis Current Visit: Yes Status: Acute Assessment and plan: Improving Tolerating clear liquid diet well No need to restart TPN at this point Surgery on board Will switch to PO Abx in AM for total 10 days course Will talk to surgery about d/c plan (2) Small bowel obstruction, partial Current Visit: Yes Status: Acute Assessment and plan: Passing gas ok.. had BM x 2 Surgery on board (3) Septic shock Current Visit: Yes Status: Acute Assessment and plan: Due to acute appendicitis and phlegmon around cecum Resolved off the vaso pressers more than 2 days blood cx no growth so far cont IV abx (4) PATIENCE (acute kidney injury) Current Visit: Yes Status: Acute Assessment and plan: Resolved (5) Hypokalemia Current Visit: Yes Status: Acute Assessment and plan: resolved (6) DVT prophylaxis Current Visit: Yes Status: Acute - Subjective Interval history: 61-year-old gentleman admitted with worsening the right lower quadrant abnormal pain due to acute appendicitis/phlegmon around the cecum. Patient was started an IV antibiotic and NPO initially. His symptoms started improving and he was placed on clear liquid yesterday. So for patient has been tolerating clear liquid diet well. Patient denied any abdominal pain no nausea no vomiting. Remained afebrile. He did pull out his IV Central line last night. - Constitutional Vitals: Temp Pulse Resp BP Pulse Ox 98.0 F 69 18 128/83 95 09/28/16 06:44 09/28/16 06:44 09/28/16 06:44 09/28/16 06:44 09/28/16 06:44 General appearance: Present: A&O X 3, no acute distress, answers questions appropriately - Respiratory Respiratory exam: Present: CTAB. Absent: rales, respiratory distress, rhonchi, wheezes - Cardiovascular Cardiovascular exam: Present: RRR, +S1, +S2. Absent: diastolic murmur, systolic murmur - GI/Abdominal GI/Abdominal exam: Present: distended, normal bowel sounds, soft, no peritoneal signs. Absent: guarding, mass, rebound, rigid, tenderness - Psychiatric Psychiatric exam: Present: normal affect, normal mood Internal Medicine: Result - Labs CBC & Chem 7: 09/28/16 04:44 09/28/16 04:44 Labs: Short CBC 09/28/16 Range/Units 04:44 WBC 9.2 (4.3-11.1) K/mcL Hgb 12.8 L (12.9-16.9) g/dL Hct 37.5 (37.5-50.1) % Plt Count 234 (140-400) K/mcL BMP 09/28/16 04:44 Sodium 135 L Potassium 3.8 Chloride 103 Carbon Dioxide 26 BUN 10 Creatinine 0.77 Glucose 99 Calcium 8.9 - ABG Interpretation ABG results: PT/INR, D-dimer PT 15.0 Seconds (9.4-12.1) H 09/21/16 12:34 - Impressions Impressions Chest X-Ray 09/28/16 04:17 IMPRESSION: Right IJ approach central venous catheter with the tip terminating in the region of the distal internal jugular vein. No pneumothorax. Left basilar atelectasis. D/ / Semaj Edwards MD / Semaj Edwards MD Interpreting Provider: Semaj Edwards MD - VTE Documentation of Mechanical Device: Intermittent pneumatic compression device Consult Discharge Plan - Plan Referrals: Natividad Roberto CNP [Primary Care Provider] -
--- NOTE | 2016-09-28 13:41 | General Surgery Progress Note ---
<Quyen Coker - Last Filed: 09/28/16 14:07> Date of Encounter: 09/28/16 Time of Encounter: 13:15 - Assessment and Plan (1) Acute appendicitis with peritonitis Current Visit: Yes Status: Acute Tolerating liquids without difficulty advanced diet as tolerated Transition to p.o. Augmentin 875/125 mg BID with food for 10 days OK to d/c from surgical perspective if he tolerates diet F/u with Dr. Vyas if needed We will sign off. Thank you for allowing us to participate in this care. Please re-consult surgery if questions or needs arise. (2) Abdominal pain Current Visit: Yes Status: Resolved Tolerating liquids without difficulty advanced diet as tolerated Transition to p.o. Augmentin 875/125 mg BID with food for 10 days OK to d/c from surgical perspective if he tolerates diet F/u with Dr. Vyas if needed Qualifiers: Abdominal location: epigastric Qualified Code(s): R10.13 - Epigastric pain (3) Small bowel obstruction, partial Current Visit: Yes Status: Resolved Tolerating liquids without n/v. +BM and flatus today Denies abdominal pain Advance diet as tolerated OK to d/c from surgical perspective when tolerating regular diet Subjective Patient reports: no new complaints, feels better, pain is less, tolerating liquids well, voiding w/o difficulty, flatus, bowel movement, afebrile Narrative: Denies abdominal distention. Denies n/v/d/ or uncontrolled discomfort. He endorses appetite, is ambulating and urinating without difficulty. Objective Vital Signs - Last 8 Hours Temp Pulse Resp BP Pulse Ox 09/28/16 11:03 98.1 F 71 16 105/67 93 09/28/16 06:44 98.0 F 69 18 128/83 95 Intake and Output 09/27/16 09/28/16 09/28/16 23:59 07:59 15:59 Intake Total 672 / 672 591 / 591 293 / 293 Output Total 1050 / 1050 700 / 700 650 / 650 Balance -378 / -378 -109 / -109 -357 / -357 Intake: IV Fluids 312 / 312 591 / 591 53 / 53 Dextrose 10% Water 500 Ml 53 / 53 Ivbag 500 ML @ 50 mls/hr IVC .Q10H PRN Rx#: [id number] Clinimix E 5%-15% 173 / 173 392 / 392 SOLUTION 2,000 ML @ 83.3 mls/hr IVC .Q24H [facility] with M.v.i. Adult 10 ml Rx#: [id number] Intralipid 20% 250 ML @ 39 / 39 99 / 99 21 mls/hr IVPB DAILY@1700 [facility] Rx#:[id number] Zosyn 3.375 GM In 100 / 100 100 / 100 Dextrose 5% (Minibag+) 100 ML 100 ML @ 25 mls/hr IVPB Q8H [facility] Rx#: [id number] Oral 360 / 360 0 / 0 240 / 240 Output: Urine 1050 / 1050 700 / 700 650 / 650 Other: Stool Size Small Moderate Stool Consistency formed Stool Color Brown # Bowel Movements 1 Weight 106.769 kg Blood Glucose* 105 88 100 Patient Weight 09/28/16 23:59 Weight 106.769 kg - General physical appearance well developed, well nourished, no distress - Eyes normal ocular movement - ENT normal mucosa, atraumatic, normocephalic - Neck Neck exam: trachea midline - Respiratory normal expansion, normal respiratory effort, clear to auscultation - Cardiovascular Cardiovascular exam: Present: RRR - Abdomen Abdomen: Present: bowel sounds present, soft (protuberant), non tender Hernia: none - Integumentary no rash - Neurologic CN 2-12 grossly intact - Musculoskeletal normal posture - Psychiatric oriented to time, oriented to person, oriented to place - Labs 09/28/16 04:44 09/28/16 04:44 Diabetes panel 09/28/16 Range/Units 04:44 Sodium 135 L (136-145) mEq/L Potassium 3.8 (3.5-4.5) mEq/L Chloride 103 (98-109) mEq/L Carbon Dioxide 26 (19-29) mEq/L BUN 10 (8-26) mg/dL Creatinine 0.77 (0.72-1.25) mg/dL Glucose 99 (70-99) mg/dL Calcium 8.9 (8.6-10.8) mg/dL Calcium panel 09/28/16 Range/Units 04:44 Calcium 8.9 (8.6-10.8) mg/dL Phosphorus 3.6 (2.3-4.7) mg/dL Pituitary panel 09/28/16 Range/Units 04:44 Sodium 135 L (136-145) mEq/L Potassium 3.8 (3.5-4.5) mEq/L Chloride 103 (98-109) mEq/L Carbon Dioxide 26 (19-29) mEq/L BUN 10 (8-26) mg/dL Creatinine 0.77 (0.72-1.25) mg/dL Glucose 99 (70-99) mg/dL Calcium 8.9 (8.6-10.8) mg/dL Adrenal panel 09/28/16 Range/Units 04:44 Sodium 135 L (136-145) mEq/L Potassium 3.8 (3.5-4.5) mEq/L Chloride 103 (98-109) mEq/L Carbon Dioxide 26 (19-29) mEq/L BUN 10 (8-26) mg/dL Creatinine 0.77 (0.72-1.25) mg/dL Glucose 99 (70-99) mg/dL Calcium 8.9 (8.6-10.8) mg/dL - VTE Documentation of Mechanical Device: Intermittent pneumatic compression device Consult Discharge Plan - Plan Additional Instructions: Take all your antibiotics as directed until they are completed. Return to the office if you have new or worsening abdominal pain or symptoms similar to what you had previously. F/u with Dr. Vyas if needed Referrals: Natividad Roberto CNP [Primary Care Provider] - Rob Vyas MD [Partnered Physician] - (two weeks - perforated/phlegmon acute appedicitis follow-up) Prescriptions: Amoxicillin/Clavulanate [Augmentin] 875 mg PO BIDWM 10 Days <Nerissa Anand - Last Filed: 09/28/16 23:30> Date of Encounter: 09/28/16 - Assessment and Plan (1) Abdominal pain Current Visit: Yes Status: Resolved f/u with Dr Scruggs in two weeks Qualifiers: Abdominal location: epigastric Qualified Code(s): R10.13 - Epigastric pain (2) Acute appendicitis Current Visit: Yes Status: Acute improved, tolerating diet Qualifiers: Acute appendicitis type: with localized peritonitis Qualified Code(s): K35.3 - Acute appendicitis with localized peritonitis (3) DVT prophylaxis Current Visit: Yes Status: Acute (4) Ileus Current Visit: Yes Status: Acute Subjective Patient reports: feels better, tolerating liquids well, flatus, bowel movement Objective Vital Signs - Last 8 Hours Temp Pulse Resp BP Pulse Ox 09/28/16 20:58 98.5 F 77 14 104/68 94 09/28/16 16:08 97.8 F 75 18 130/67 95 Intake and Output 09/28/16 09/28/16 09/28/16 07:59 15:59 23:59 Intake Total 591 / 591 393 / 393 480 / 480 Output Total 700 / 700 650 / 650 1100 / 1100 Balance -109 / -109 -257 / -257 -620 / -620 Intake: IV Fluids 591 / 591 153 / 153 Dextrose 10% Water 500 Ml 53 / 53 Ivbag 500 ML @ 50 mls/hr IVC .Q10H PRN Rx#: [id number] Clinimix E 5%-15% 392 / 392 SOLUTION 2,000 ML @ 83.3 mls/hr IVC .Q24H [facility] with M.v.i. Adult 10 ml Rx#: [id number] Intralipid 20% 250 ML @ 99 / 99 21 mls/hr IVPB DAILY@1700 [facility] Rx#:[id number] Zosyn 3.375 GM In 100 / 100 100 / 100 Dextrose 5% (Minibag+) 100 ML 100 ML @ 25 mls/hr IVPB Q8H [facility] Rx#: [id number] Oral 0 / 0 240 / 240 480 / 480 Output: Urine 700 / 700 650 / 650 300 / 300 Urine/Stool Mix 800 / 800 Other: Meal Dinner Percent of Meal Consumed 100% Stool Size Moderate Stool Consistency formed Stool Color Brown Weight 106.769 kg Blood Glucose* 88 103 114 Patient Weight 09/28/16 23:59 Weight 106.769 kg - General physical appearance well nourished, no distress - Eyes PERRL, normal ocular movement - ENT normal mucosa, normocephalic - Neck Neck exam: trachea midline - Respiratory normal expansion, clear to auscultation - Cardiovascular Cardiovascular exam: Present: RRR - Abdomen Abdomen: Present: bowel sounds present, soft, non tender, distended (may be patients normal adominal girth) - Integumentary no rash, no growths - Neurologic CN 2-12 grossly intact - Musculoskeletal normal posture - Psychiatric oriented to time, oriented to person - Labs 09/28/16 04:44 09/28/16 04:44 Diabetes panel 09/28/16 Range/Units 04:44 Sodium 135 L (136-145) mEq/L Potassium 3.8 (3.5-4.5) mEq/L Chloride 103 (98-109) mEq/L Carbon Dioxide 26 (19-29) mEq/L BUN 10 (8-26) mg/dL Creatinine 0.77 (0.72-1.25) mg/dL Glucose 99 (70-99) mg/dL Calcium 8.9 (8.6-10.8) mg/dL Calcium panel 09/28/16 Range/Units 04:44 Calcium 8.9 (8.6-10.8) mg/dL Phosphorus 3.6 (2.3-4.7) mg/dL Pituitary panel 09/28/16 Range/Units 04:44 Sodium 135 L (136-145) mEq/L Potassium 3.8 (3.5-4.5) mEq/L Chloride 103 (98-109) mEq/L Carbon Dioxide 26 (19-29) mEq/L BUN 10 (8-26) mg/dL Creatinine 0.77 (0.72-1.25) mg/dL Glucose 99 (70-99) mg/dL Calcium 8.9 (8.6-10.8) mg/dL Adrenal panel 09/28/16 Range/Units 04:44 Sodium 135 L (136-145) mEq/L Potassium 3.8 (3.5-4.5) mEq/L Chloride 103 (98-109) mEq/L Carbon Dioxide 26 (19-29) mEq/L BUN 10 (8-26) mg/dL Creatinine 0.77 (0.72-1.25) mg/dL Glucose 99 (70-99) mg/dL Calcium 8.9 (8.6-10.8) mg/dL - Attending Attestation I examined this patient and my medical decision-making was reviewed with the FLAME HARDENING MACHINE SETTER/PA/Advanced Practice Nurse/Resident Physician. I agree with the documented findings, disposition and treatment plan as described except to the extent set forth below.
[2016-09-28] MEDS: *HR* HYDROmorphone (PF) 1 MG/ML SYRINGE IVP PRN ×2 (17:25→19:52)
[2016-09-28] MEDS: Gabapentin 300 MG CAPSULE PO SCH (21:29)
[2016-09-29] MEDS: Piperacillin/Tazobactam 3.375 GM in D5% in Water (Mini-Bag+) 100 ML IVPB SCH ×2 (01:05→09:30)
[2016-09-29] MEDS: Metoclopramide 10 MG/2 ML VIAL IVP SCH ×2 (01:05→05:06)
[2016-09-29] MEDS: *HR* HYDROmorphone (PF) 1 MG/ML SYRINGE IVP PRN ×2 (01:11→05:07)
[2016-09-29] MEDS: *HR* Heparin 5,000 UNIT/ML VIAL SQ SCH (05:06)
[2016-09-29 05:54] VITALS: BP 137/78
[2016-09-29] MEDS: *HR* LORazepam 2 MG/ML VIAL IVP SCH (09:30)
--- NOTE | 2016-09-29 09:37 | Discharge Summary ---
Date of Encounter: 09/29/16 Time of Encounter: 09:33 - Discharge Diagnosis (1) Acute appendicitis with peritonitis Priority: Primary Status: Acute Comments: resolved (2) Small bowel obstruction, partial Priority: Primary Status: Resolved (3) Septic shock Priority: Secondary Status: Acute Comments: resolved (4) PATIENCE (acute kidney injury) Priority: Secondary Status: Acute Comments: resolved (5) Hypokalemia Priority: Secondary Status: Acute - Discharge Medications Prescriptions: Amoxicillin/Clavulanate [Augmentin] 875 mg PO BIDWM #14 tablet Saccharomyces Boulardii [Florastor] 250 mg PO BID #14 capsule Home Medications: Acetaminophen with Codeine [Acetaminophen-Cod #3 Tablet] 1 tab PO Q6H PRN [History] Gabapentin [Neurontin] 300 mg PO TID 09/21/16 [History] LORazepam [Ativan] 1 mg PO BID 09/21/16 [History] Lisinopril-HCTZ 20-12.5 [Prinzide 20-12.5] 1 tab PO DAILY 09/21/16 [History] Naproxen Sodium [Aleve] 220 mg PO Q12H PRN 09/21/16 [History] Venlafaxine HCl 100 mg PO BID 09/21/16 [History] Amoxicillin/Clavulanate [Augmentin] 875 mg PO BIDWM #14 tablet 09/29/16 [Rx] Saccharomyces Boulardii [Florastor] 250 mg PO BID #14 capsule 09/29/16 [Rx] Allergies/Adverse Reactions: Allergies morphine Allergy (Verified 09/21/16 10:04) See Comments Date of admission: 09/21/16 13:25 Primary care physician: Natividad Roberto CNP Consults: 09/24/16 11:38 consult to precision instrument and tool maker [Consult to Nutrition] [CONS] Routine Comment: Total fluid rate 100ml/hour (MIV + TPN) Consulting Provider: NUTRITION Reason for Dietary Consult: TPN Start and Manage 09/28/16 09:50 PT [Consult to Physical Therapy] [CONS] Routine Comment: Evaluate, develop and implement POC Reason for Consult: eval and treat 09/28/16 09:51 OT [Consult to Occupational Therapy] [CONS] Routine Comment: Evaluate, develop and implement POC Reason for Consult: eval and treat 09/28/16 09:52 Consult to Horticulture Superintendent [CONS] Routine Reason for SW Consult: eval and treat 09/28/16 17:27 Consult to Invasive Line Access Team [CONS] Routine Reason for Consult: poor iv access Line Type: EPIV Anticipated date of discharge: 09/29/16 - Patient Status Disposition: Home Health Service Condition: Fair Overall status at discharge: patient is back to baseline - Discharge Instructions Follow Up With: Natividad Roberto CNP [Primary Care Provider] - Rob Vyas MD [Partnered Physician] - (two weeks - perforated/phlegmon acute appedicitis follow-up) Additional Instructions: Take all your antibiotics as directed until they are completed. Return to the office if you have new or worsening abdominal pain or symptoms similar to what you had previously. F/u with Dr. Vyas if needed Hospital course: Mr. Chapman is a 61-year-old gentleman admitted with worsening the right lower quadrant abnormal pain due to acute appendicitis/phlegmon around the cecum. Patient was started an IV antibiotic and NPO initially. He was in septic shock initially required vasopressors. With broad spectrum abx and IV fluids his symptoms started improving. Pt was seen by surgery who recommend to continue medical management since pt showed tremendous improvement with broad spectrum abx. He was started on clear liquid diet 2 days ago and advanced as tolerated. Now he is tolerating regular diet well with out any complications. At this point surgery recommend to d/c him home with PO Augmentin. At the time of discharge his vitals are stable. So will d/c him home today in stable condition. - Time Spent with Patient Total time spent providing and/or coordinating discharge services: Less than 30 minutes - Constitutional Vitals: Temp Pulse Resp BP Pulse Ox 98.4 F 60 14 137/78 94 09/29/16 05:52 09/29/16 05:52 09/29/16 05:52 09/29/16 05:52 09/29/16 05:52 General appearance: Present: A&O X 3, no acute distress, answers questions appropriately - Respiratory Respiratory exam: Present: CTAB. Absent: accessory muscle use, rales, rhonchi, wheezes - Cardiovascular Cardiovascular exam: Present: RRR, +S1, +S2. Absent: diastolic murmur, gallop, rubs, systolic murmur - GI/Abdominal GI/Abdominal exam: Present: normal bowel sounds, soft, no peritoneal signs. Absent: guarding, rebound, rigid, tenderness - Psychiatric Psychiatric exam: Present: normal affect, normal mood - VTE Documentation of Mechanical Device: Intermittent pneumatic compression device
== END 2016-09-29 12:25 | disposition home health service (06) | DRG 871 ==
LOC: EMEROO 09:57 → ICNU 13:25 → SUATTDRO 13:25 → ICNU 14:12 → 3ANU 09-22 11:14
PROVIDERS: ADMIT Internal Medicine Hospice and Palliative Medicine; ATTEND Family Medicine